=== PATIENT | female | born 1955 | race Caucasian/White ===

== ENCOUNTER → 2016-09-13 | Outpatient (CLI) | payer BC ==
[~2016-09-13] MED LIST: CHOL100010 PO; GLUC10007 PO; [UNRECOGNIZED DRUG - REMARK] PO
--- NOTE | 2016-09-13 12:47 | MAMMOGRAPHY REPORT ---
UNILATERAL LEFT DIGITAL DIAGNOSTIC MAMMOGRAM TOMOSYNTHESIS WITH CAD AND TARGETED LEFT ULTRASOUND: CLINICAL HISTORY: 61-year-old female presents for follow-up in the left breast. She is 6 months sta tus post ultrasound-guided core biopsy of a focal area of architectural distortion in the 3:00 left breast that yielded benign adenosis. This was felt to be discordant with the imaging appearance of distortion and surgical consultation for surgical excision was recommended. The patient consulted w dory Sneed, general surgery, since the previous exam. TECHNIQUE: Left CC and MLO 2-D digital and tomosynthesis images were obtained. Current study was al so evaluated with a Computer Aided Detection (CAD) system. COMPARISON: Comparison is made to exams dated: 03/16/2016 ultrasound biopsy, 03/03/2016 mammogram, 02/26 mammogram, 02/11/2014 mammogram, 12/10/2012 mammogram, and 12/07/2011 mammogram - [facility]. BREAST COMPOSITION: There are scattered areas of fibroglandular density in the left breast. FINDINGS: There is a ribbon shaped metallic biopsy marker along the posterior aspect of a focal are a of architectural distortion in the 3:00 middle one third of the left breast. This architectural d istortion does not appear larger comparing to multiple prior mammograms dating back to at least 11/24 on the standard 2-D views. No new central nodular component is seen on the tomosynthesis isidro ges. No other suspicious mass, architectural distortion or cluster of microcalcifications is seen th roughout the left breast. Targeted ultrasound was performed in the 3:00 left breast to re-evaluate the biopsied distortion. I t appears similar measuring approximately 5 x 6 x 5 mm. No new central masslike or nodular componen t is appreciated. IMPRESSION: ACR BI-RADS CATEGORY 4: SUSPICIOUS, TARGETED ULTRASOUND ACR BI-RADS CATEGORY 4: SUSPICI OUS The focal architectural distortion in the 3:00 left breast has not significantly changed compared to the prior exam and also appears stable on the 2-D mammographic views dating back to 2011. With iker roximately 5 years of stability this is most likely benign. However, pathology results did not conf irm the suspected radial scar and were considered discordant. The patient consulted with Dr. Sneed, general surgery, and they opted to follow this lesion as opposed to surgical excisional biopsy at is time. Overall, I still recommend surgical excision but if the patient wishes close follow-up that seems re asonable given the length of mammographic stability and we will continue to follow closely. The pat ient is due for annual bilateral mammography in 6 months and she scheduled that follow-up appointmen t prior to leaving the department. Approximately 10% of breast cancers are not detected with mammography. A negative mammographic repor t should not delay biopsy if a clinically suggestive mass is present. Ami Jacobo M.D. ay/:09/13/2016 10:12:12 Graphite Pan Drier Tender: Katie Stern RT(R)(M), [facility] letter sent: Abnormal 4/5 BI-RADS Code: ACR BI-RADS Category 4: Suspicious Ultrasound BI-RADS: ACR BI-RADS Category 4: Suspic ious
== END | disposition home or self-care (01) ==
LOC: C.MAMM 08:41
PROVIDERS: ATTEND Surgery
DX: R92.8 Other abnormal and inconclusive findings on diagnostic imaging of breast (principal)

== ENCOUNTER → 2017-03-16 | Outpatient (CLI) | payer BC ==
--- NOTE | 2017-03-16 12:36 | MAMMOGRAPHY REPORT ---
BILATERAL DIGITAL DIAGNOSTIC MAMMOGRAM TOMOSYNTHESIS WITH CAD AND TARGETED BILATERAL ULTRASOUND: 03/16 CLINICAL HISTORY: The patient presents for short interval follow-up in the left breast. She is statu s post ultrasound guided core needle biopsy of a focal area of architectural distortion in the left 3 :00 breast February 2016 yielded benign adenosis. The biopsy was felt to be discordant and surgical excision was recommended. The patient consulted with a surgeon, and together they decided to follow the lesion as opposed to excise it. The patient reports no current complaints. TECHNIQUE: Breast tomosynthesis in addition to standard 2D mammography was performed. Current study was also evaluated with a Computer Aided Detection (CAD) system. Bilateral CC and MLO 2-D and tomosy nthesis images were obtained. COMPARISON: Comparison is made to exams dated: 09/13/2016 ultrasound, 09/13/2016 mammogram, 03/16/2016 mammogram, 03/16/2016 ultrasound biopsy, 03/08/2016 ultrasound, and 03/03/2016 mammogram - [facility]. BREAST COMPOSITION: There are scattered areas of fibroglandular density in both breasts. FINDINGS: A biopsy marker clip is again noted within a focal area of architectural distortion in the left 3:00 breast. The architecture distortion does not appear significantly changed dating back to the 2011 exam mammographically. No calcifications or other suspicious finding is seen in association with the distortion. There is a newly visualized round circumscribed 8 mm mass in the right superio r posterior breast seen on the MLO view only. The remainder of both breasts are stable compared to p rior exams, without suspicious masses, calcifications, or areas of architectural distortion noted. Targeted ultrasound was performed of the area of architectural distortion seen within the left breast . In the left breast at 3:00, 4 cm from the nipple, again noted is a focal area of architectural dis tortion which does not appear significantly changed dating back to the February 2016 ultrasound, cur rently measuring 4 x 4 x 5 mm. Targeted ultrasound was performed of the area of the newly visualized mammographic mass. In the right breast at 9:00, 12 cm from the nipple, there is an oval circumscrib ed mass which measures 7 x 5 x 8 mm. A small echogenic fatty hilum is seen and there is internal vas cularity, and has the appearance of an intramammary lymph node. However, the peripheral hypoechoic c ortex appears thickened, therefore, the lymph node is morphologically abnormal. This corresponds wit h the newly visualized mammographic mass. The patient denies any known chronic inflammatory conditio ns or recent infections that could account for the enlarged lymph node. Therefore, the lymph node is indeterminate and ultrasound-guided core needle biopsy is recommended for further evaluation. IMPRESSION: ACR BI-RADS CATEGORY 4: SUSPICIOUS, TARGETED ULTRASOUND ACR BI-RADS CATEGORY 4: SUSPICIO US 1. Focal architectural distortion in the left 3:00 breast is not significantly changed mammographica lly dating back to the 2011 exam. This likely represents a radial scar given the long-term stability , however, pathology results from biopsy did not confirm a radial scar and findings were considered d iscordant. As it is recommended to excise radial scars given that malignant/atypical cells can somet imes be seen in association with a radial scars, surgical excision is still recommended. 2. Newly visualized 8 mm intramammary lymph node in the right breast at 9:00, which demonstrates abn ormal cortical thickening. The lymph node is indeterminate and ultrasound guided core needle biopsy is recommended for further evaluation. A phone call was made to the physician's office to confirm faxed results were received. The patient has been verbally notified of the results. She tentatively scheduled the biopsy before leaving the [facility]. Approximately 10% of breast cancers are not detected with mammography. A negative mammographic report should not delay biopsy if a clinically suggestive mass is present. Eloisa Rizzo M.D. ah/:03/16/2017 08:45:37 Event Planner: Yvette PRITCHARD)(Yelena), [facility] letter sent: Abnormal 4/5 BI-RADS Code: ACR BI-RADS Category 4: Suspicious Ultrasound BI-RADS: ACR BI-RADS Category 4: Suspici ous
== END | disposition home or self-care (01) ==
LOC: C.MAMM 07:59
PROVIDERS: ATTEND Family Medicine
DX: R92.2 Inconclusive mammogram (principal); I89.8 Other specified noninfective disorders of lymphatic vessels and lymph nodes

== ENCOUNTER → 2017-03-22 | Outpatient (CLI) | payer BC ==
--- NOTE | 2017-03-22 09:22 | Discharge Instructions ---
Discharge Instructions Procedure Procedure Date: Mar 22, 2017. Reason for visit: Right Lymph Node. Discharge Discharge Date: Mar 22, 2017. Discharge Diagnosis: status post breast biopsy Instructions Activity Recommendations: Additional Limitations (see below) Return to School/Work: no limitations Recommended Home Diet: No Limitations Provider Instructions: ACTIVITY RECOMMENDATIONS: * No lifting, pushing, pulling or exercising the affected side for three days. RETURN TO SCHOOL/WORK: * You may return to work/school after the procedure, but do not perform any strenuous activities for 24 to 48 hours. MEDICATIONS: * Tylenol (two 325 mg) every four to six hours if needed for mild pain (if not allergic to Tylenol). DIET: * Resume previous diet. SPECIAL CARE INSTRUCTIONS: * Keep biopsy site dry for 24 hours. May shower after 24 hours, but do not soak (bathe) incision. * May remove Tegaderm (plastic patch) tomorrow AFTER showering. * Leave the steri-strips on for one week. Allow the steri-strips to fall off by themselves. If not off after one week, you may remove them. You may place a Bandaid crosswise over the strips, if desired. * Apply ice 10 minutes on and 10 minutes off as needed. * Wear a bra at bedtime to sleep more comfortably for 2-3 days. * Your referring physician should have the results after approximately 5 to 7 business days. * Call for unusual bleeding, fever, drainage, etc or if you have any questions call during normal business hours or after hours call Dr Rizzo, . FOLLOW UP VISIT: Follow-up with Referring Physician as scheduled. Allergies Coded Allergies: No Known Allergies (Verified , 08/07/14) Serge Rothman Recommendations: Call your doctor if: * Temperature above 101 degrees * Pain not relieved by pain medicine ordered * There is increased drainage or redness from any incision * You have any unanswered questions or concerns. Your Doctors Instructions noted above were prepared by provider Eloisa Rizzo. Patient Signature Section: Patient Instructions Signature Page Cristal Villa Patient (or Guardian) Signature/Date: I have read and understand the instructions given to me by my caregivers. Caregiver/RN/Doctor Signature/Date: The above-named patient and/or guardian has received patient instructions on this date. + Original Patient Signature Page (only) stays with chart. Please make copy for patient.
--- NOTE | 2017-03-22 15:28 | MAMMOGRAPHY REPORT ---
ULTRASOUND GUIDED BIOPSY RIGHT BREAST: 03/22/2017 CLINICAL HISTORY: Intramammary lymph node in the right 9:00 breast. PATIENT CONSENT: The procedure, risks and benefits were discussed with the patient and informed writt en consent was obtained. A timeout was performed immediately prior to the procedure. PROCEDURE DESCRIPTION: With ultrasound guidance, aseptic technique, and lidocaine as the local anesth etic (1% lidocaine to anesthetize the skin and 1% lidocaine with epinephrine to anesthetize the deepe r tissues), the mass of concern in the right 9:00 breast was sampled 3 times with a 14-gauge Achieve biopsy needle. Immediately thereafter, with ultrasound guidance, aseptic technique, and lidocaine a s the local anesthetic, a metallic localizer clip was placed centrally in the mass. Direct pressure was applied to the site immediately post procedure and hemostasis was achieved. Postprocedure unilat eral mammograms were performed to confirm placement of the clip in the expected location of the breas t mass. The patient tolerated the procedure without complication. She was given wound care instruc tions. The specimens were sent to pathology for analysis. COMPARISON: Comparison is made to exams dated: 03/16/2017 ultrasound, 03/16/2017 mammogram, 09/13/2016 ultrasound, 09/13/2016 mammogram, 03/16/2016 mammogram, and 03/03/2016 mammogram - [facility]. IMPRESSION: ULTRASOUND GUIDED BIOPSY Ultrasound guided core needle biopsy of the intramammary lymph node in the right 9:00 breast, with cl ip placement. The patient will receive pathology results from her referring provider. Eloisa Rizzo M.D. /:03/22/2017 09:23:06 Director Of Nursing: Yvette RED(Gisselle)(Yelena), [facility]
--- NOTE | 2017-03-22 15:30 | MAMMOGRAPHY REPORT ---
UNILATERAL RIGHT DIGITAL DIAGNOSTIC MAMMOGRAM TOMOSYNTHESIS: 03/22/2017 CLINICAL HISTORY: Status post right breast biopsy. TECHNIQUE: Breast tomosynthesis in addition to standard 2D mammography was performed. Postprocedura l right XCCL and MLO tomosynthesis images including C views were obtained. COMPARISON: Comparison is made to exams dated: 03/16/2017 ultrasound, 03/16/2017 mammogram, 09/13/2016 ultrasound, 09/13/2016 mammogram, 03/16/2016 mammogram, and 03/16/2016 ultrasound biopsy - [facility]. BREAST COMPOSITION: There are scattered areas of fibroglandular density in the right breast. FINDINGS: A new biopsy marker clip is seen within the biopsied right 9:00 breast mass; the mass and biopsy marker clip are only visualized on the MLO view and cannot be seen on the XCCL view. No signi ficant postbiopsy hematoma is seen. IMPRESSION: POST PROCEDURE IMAGING FOR MARKER PLACEMENT New biopsy marker clip status post ultrasound guided biopsy of the right 9:00 breast mass. Pathology results are pending. Approximately 10% of breast cancers are not detected with mammography. A negative mammographic report should not delay biopsy if a clinically suggestive mass is present. Eloisa Rizzo M.D. /:03/22/2017 09:28:21 Medical Engineer: Yvette PRITCHARD)(Yelena), [facility] BI-RADS Code: Post Procedure Imaging For Marker Placement
== END | disposition home or self-care (01) ==
LOC: C.MAMM 08:46
PROVIDERS: ATTEND Family Medicine
DX: R59.0 Localized enlarged lymph nodes (principal)

== ENCOUNTER → 2018-01-31 | Outpatient (CLI) | payer BC, OTHER | END | disposition home or self-care (01) | LOC: C.RDSM 14:00 | PROVIDERS: ATTEND Physical Medicine & Rehabilitation Sports Medicine | DX: M25.552 Pain in left hip (principal) ==

== ENCOUNTER 2020-05-05 06:03 | Observation (INO) ==
--- NOTE | 2020-04-09 13:45 | Anesthesiology Consultation ---
Date of Service April 09, 2020 Assessment & Plan (1) Encounter for pre-operative examination: Per assessment on 04/09: Travel screen- Lives in [facility]. No travel since late January. DOS 05/05. Uses PPE. No known COVID-19 positive contacts or current COVID-19 related symptoms. Surgeon arranging preop COVID testing. Awaiting results. Chart Review Chart Review: Acceptable Risk for Surgery (pending surgeon-ordered PCP clearance) and Patient seen in Pre Admission Testing Teaching & Discussion Pre-Anesthesia Teaching/Discussion Notes: Instructed NPO after midnight before s urgery,except medications with 15 cc of water. Medication instructions provided according to the PAT guidelines. History Surgery Operation Date: 05/05/20 07:00 Proposed Procedures p Right Total Knee Arthroplasty - Jordi Irene MD Height/Weight Height: 5 ft 7 in Weight: 77.7 kg Allergies Allergy/AdvReac Type Severity Reaction Status Date / Time No Known Allergies Allergy Unknown Verified 04/03/20 12:57 Medications Home Medications Medication Instructions Recorded Confirmed Last Taken ibuprofen 1 tab PO DAILY PRN 04/09/20 04/09/20 Unknown Past Medical History Medical History Osteoarthritis Exercise / Class Metabolic Activity II 4-5 Yardwork/Stairs/Walk up hill Past Surgical History Surgical History History of hand surgery left hand middle finger repair Hx of arthroscopy of right knee Hx of hysterectomy vaginal Past Anesthesia History No Hx of Anesthesia Complications (except PONV x 1 episode) and No Family Hx of Anesthesia Complications History of PONV No Hx of Motion Sickness and History of PONV Social History Smoking Status: Never smoker Do You Dip or Chew Tobacco: No Hx Alcohol Use: Yes Alcohol type: wine alcohol intake frequency: holidays/special occasions only Hx Substance Use: No substance use type: does not use Review of Systems Patient denies chest pain, shortness of breath, dyspnea on exertion, fever, ch ills, cough, wheezing, palpitations. Physical Exam Vital Signs VITALS BP 104/56 P 77 TEMP 98.0 SP02 99%RA RESP 16 PHYSICAL Full neck and c-spine range of motion. Full TMJ range of motion. TMD 3 finger breaths Mallampati Score 1 Dentition: molar missing, + several crowns, plan for crown replacement prior to surgery (patient states she made surgeon aware) Lungs: clear throughout to auscultation Cardiac: regular rate and rhythm, no murmurs noted Spine: normal Carotid arteries: negative bruit Extremities: no edema Testing Laboratory Results 04/09/20 14:23 04/09/20 14: PT 11.2 Seconds (9.0-12.0) 04/09/20 14: INR 1.1 (0.9-1.1) 04/09/20: APTT 27.5 Seconds (21.0-31.0) 04/09/20 14: Blood Type O Positive 04/09/20: Antibody Screen NEGATIVE 04/09/20: Electrocardiogram Date: 04/09/20 Findings: + NSR @ (69) Chest X-Ray Date: 04/09/20 FINDINGS: PA and lateral chest radiographs are obtained. No prior studies are available for comparison at the time of dictation. The cardiomediastinal silhouette is unremarkable. The lungs appear hyperinflated and hyperlucent with flattening of diaphragms and increased retrosternal clear space. This suggests emphysema. No airspace consolidation or pleural effusion is identified There is no pneumothorax. The skeletal structures are osteopenic. The bony thorax appears intact. IMPRESSION: No active disease in the chest. Suspect emphysema.
--- NOTE | 2020-04-09 15:20 | XRay Report ---
TWO VIEW CHEST CLINICAL HISTORY: Preoperative examination. FINDINGS: PA and lateral chest radiographs are obtained. No prior studies are available for compariso n at the time of dictation. The cardiomediastinal silhouette is unremarkable. The lungs appear hyper inflated and hyperlucent with flattening of diaphragms and increased retrosternal clear space. This s uggests emphysema. No airspace consolidation or pleural effusion is identified There is no pneumothor ax. The skeletal structures are osteopenic. The bony thorax appears intact. IMPRESSION: 1. No active disease in the chest. 2. Suspect emphysema. ACT 112: Negative or not required by law. Electronically signed by: Raoul Quintanilla M.D. 04/09/2020 3:19 PM
[2020-04-09 15:26] LABS: Basophils # (auto) 0.02 K/uL (0-0.2); Basophils % (auto) 0.3 %; Eosinophils # (auto) 0.17 K/uL (0-0.5); Hematocrit (blood only) 38.8 % (37-47); Hemoglobin 12.3 g/dL (12.0-16.0); Lymphocytes # (auto) 1.54 K/uL (1.2-3.4); Lymphocytes % (auto) 26.8 %; Mean Corpuscular Hemoglobin 28.1 pg (25-34); Mean Corpuscular Hgb Conc 31.7 g/dL (32-36); Mean Corpuscular Volume 88.6 fL (80-100); Monocytes # (auto) 0.37 K/uL (0.11-0.59); Monocytes % (auto) 6.4 %; Neutrophils # (auto) 3.65 K/uL (1.4-6.5); Neutrophils % (auto) 63.5 %; Platelet Count 249 K/uL (130-400); RDW Coefficient of Variation 14.5 % (11.5-14.5); RDW Standard Deviation 47.3 fL (36.4-46.3); Red Blood Count 4.38 M/uL (4.2-5.4); White Blood Count 5.75 K/uL (4.8-10.8)
[2020-04-09 15:40] LABS: INR 1.1 (0.9-1.1); Partial Thromboplastin Time 27.5 Seconds (21.0-31.0); Prothrombin Time 11.2 Seconds (9.0-12.0)
[2020-04-09 16:05] LABS: BUN Creatinine Ratio 25.9 (10-20); Calcium 10.4 mg/dl (8.5-10.1); Creatinine Clr Calc Pharmacy 77.3 ml/min; Est GFR (African American) 91.7; Est GFR (Non-African American) 79.1; Potassium 3.9 mmol/L (3.5-5.1)
--- NOTE | 2020-04-10 06:10 | Electrocardiogram Report ---
Test Reason : Blood Pressure : / mmHG Vent. Rate : 069 BPM Atrial Rate : 069 BPM P-R Int : 182 ms QRS Dur : 088 ms QT Int : 382 ms P-R-T Axes : 078 069 067 degrees QTc Int : 409 ms Normal sinus rhythm Normal ECG When compared with ECG of 23-AUG-2011 11:31, No significant change was found Confirmed by Reddy Jose ([id number]) on 04/10/2020 6:09:54 AM Referred By: Jordi Irene Confirmed By:Reddy Jose
[~2020-05-05 06:03] MED LIST changes: +ACETAMINOPHEN 500 MG TAB PO SCH; -CHOL100010 PO; +CeleBREX 200 MG CAP PO SCH; +FAMOTIDINE 20 MG TAB PO SCH; +GABAPENTIN 600 MG DOSE PO SCH; -GLUC10007 PO; +LR 500ML BOLUS, THEN 15ML/HR IV SCH; +LR 60ML/HR IV SCH; +METOCLOPRAMIDE HCL 10 MG TABLET PO SCH; +ROPIVACAINE 0.5% HCL/PF 150 MG, BUPIVACAINE 0.5% MPF 30 ML, EPINEPHrine 0.15 MG, Ketoro... INFIL SCH; +TRANEXAMIC ACID 1,000 MG **IV Intra-op IV SCH; +TRANEXAMIC ACID 1,000 MG **IV Pre-op IV SCH; -[UNRECOGNIZED DRUG - REMARK] PO; +ceFAZolin 2000MG 2,000 MG/15 ML SYR IV SCH; +cloNIDine HCL 0.1 MG/24 HR TRANSDERM SYS TD SCH; +dexAMETHasone 4 MG TAB PO SCH; +oxyCODONE HCL 10 MG TABCR (OxyCONTIN) PO SCH; +traMADol HCL 50 MG TABLET PO SCH
[2020-05-05] MEDS ORDERED: BUPIVACAINE/EPINEPHRINE 0.25% 1:200,000 30 ML VIAL ONE (06:23)
[2020-05-05] MEDS ORDERED: DEXAMETHASONE SOD INJ 4 MG/ML VIAL ONE (06:23)
[2020-05-05] MEDS ORDERED: BUPIVACAINE 0.5 % 5 MG/1 ML PF 10ML VIAL ONE (06:23)
[2020-05-05] MEDS ORDERED: ALBUTEROL HFA INHALER 8.5 GM ONE (06:47)
[2020-05-05] MEDS ORDERED: MIDAZOLAM HCL 1 MG/ML 2ML VIAL ONE (06:47)
[2020-05-05] MEDS ORDERED: LIDOCAINE HCL 2% 2 ML VIAL/AMP(20MG/ML) INFIL ONE (06:47)
[2020-05-05] MEDS ORDERED: fentaNYL citrate 100 MCG/2 ML VIAL ONE (06:47)
--- NOTE | 2020-05-05 06:52 | History & Physical Bridge Note ---
Date of Service May 05, 2020 History & Physical Bridge Note I have examined the patient, reviewed the History & Physical and in the interval since the performance of the History & Physical I have noted the following changes of clinical significance: no changes noted
[2020-05-05] MEDS ORDERED: ORTHO JOINT ANESTHETIC ONE (07:51)
[2020-05-05] MEDS ORDERED: BACITRACIN INJ 50,000 UNIT VIAL ONE (07:51)
[2020-05-05] MEDS ORDERED: PROPOFOL IV EMULSION 10 MG/ML 20 ML VIAL IV ONE (08:29)
--- NOTE | 2020-05-05 11:00 | Operative Report ---
Post Operative Report Pre & Post Diagnosis Operation Date: 05/05/20 08:10 Pre-Op Diagnosis: Right Knee Osteoarthritis Post-Op Diagnosis: Right Knee Osteoarthritis I identified the patient and participated in the time-out.: Yes Procedure Operation Date: 05/05/20 08:10 Actual Procedures p Right Total Knee Arthroplasty(Right) - Jordi Irene MD Surgeon Jordi Irene MD Ob Gyn Romero Spicer, orthopedic fellow. Lyndsey Schmitz physicians occupational therapist's assistant. Estimated Blood Loss 10 Findings Consistent with Post-Op Diagnosis Microscopically decreased bone density. Significant synovitis with hypert rophied synovium. Specimens Bone and soft tissue. Drains None Anesthesia Type MAC Spinal Regional Complications none Disposition Accompanied Patient To Recovery: No Disposition: Recovery Room Indications Cristal is 64. She has right knee pain refractory to nonsurgical methods of management. Her knee pain is secondary to arthritis. After review of the options risks and benefits she has elected to proceed with knee replacement surgery. Description of Procedure Informed consent obtained. Patient identified. She identified the operative site as the right knee. I marked with my initials. A preoperative surgical timeout was performed. A preop dose of IV antibiotics was given. She was taken to the operating room positioned supine on the operating room table and the anesthetic was administered. A tourniquet was applied to the right thigh. The right leg was examined and then prepped and draped in the usual sterile fashion. DVT prophylaxis with mechanical devices and postoperatively with mechanical devices early mobility and Lovenox. Bony prominences were inspected and padded. A padded post was placed behind the calf for knee flexion positioning. The examination demonstrated mild valgus alignment with a large effusion. Knee motion was 0 to approximately 105 degrees and she had trace LCL laxity and 1+ MCL laxity in mid position. The knee was stable in full extension. Preop dose of TXA given. Limb exsanguinated with Esmarch. Tourniquet inflated 250 mmHg. A midline longitudinal incision was made about 20 cm in length. This was followed by medial parapatellar arthrotomy. Immediately upon entering the knee a large volume of synovial fluid was evacuated. The patella was everted. There was thickening of the synovium. Not so much red friable synovitis but just enlarged thickening which was debrided throughout the knee as encountered medial lateral gutters and suprapatellar pouch in particular. The synovial reflection in the lateral gutter was released. The retropatellar fat pad was resected. A conservative medial release was performed and the knee was flexed. The cruciate ligaments were intact and sacrificed. The distal articular cartilage was fairly normal but in both the medial lateral compartment on the distal femur there were 2 cm areas of grade 4 chondrosis in the flexion weightbearing area. The lateral meniscus was deficient. The medial meniscus was intact and debrided. There was grade 4 chondrosis in the central portion of the lateral tibial plateau with central where. There was essentially no normal cartilage in the lateral tibial plateau. Medial tibial plateau normal. After sacrificing the cruciates the kne e was able to be subluxated. The intramedullary alignment bj was inserted just in front of the intercondylar eminences and between them. The 0 degree tibial cutting block was fixed to the tibia after orienting it with the tibial tubercle. The guide was set for a conservative 6 mm cut off of the medial side corresponding to a 4 mm cut laterally. Using the extra medullary alignment bj we determined that this cut was in slight valgus. I therefore used a 2 degree cutting block. I rechecked all my parameters and found them to be acceptable including the alignment. It bisected the ankle joint malleolar axis and intersecting the second ray. [place] was parallel to the tibia. This cut was made protecting the patellar tendon and the tibia was sized to a 3. Attention was turned to the femur where a pilot supervisor hole was drilled just in front of the PCL. Intramedullary alignment bj was inserted. Guide was set at 5 degrees right knee valgus 12 mm thick cut. This was distal to the collateral ligaments.. This cut was made. The epicondylar axis was marked out. The distal femoral sizing block was applied and sized to a 3. The external rotation drill holes were made which roughly parallel the epicondylar axis. Not in internal rotation. The extension gap was a 10 trace bit loose medially. 1 or 2 mm. The distal femoral size 3 cutting block was applied. Anterior down. These cuts were made protecting the collateral ligaments. The flexion gap was a symmetric 10. The box cutting guide was applied lateralized neck cut was made and the size 3 femoral component was applied. On the medial portion of the femur it was noted that there was large spaces be tween the trabeculae of the bone. To some extent this was due to stress shielding but also suggested the presence of osteoporosis as the general bone had that appearance. Care was taken at all times. The tibia was subluxated. The tray was aligned laterally pinned in place and the keel was drilled and punched. Trialing with a 10 mm thick polyethylene insert revealed full extension and flexion easily to 90 degrees. The knee showed trace laxity in full extension and 1+ MCL laxity in mid position. The knee showed no significant varus valgus laxity at 90 degrees. The patella was everted and measured to be 20 mm in thickness. The guide was set to preserve 14 mm of bone. This cut was made and residual patellar thi ckness was 13. The 32 patella was selected. It was medialized and distal lysed. Appropriately aligned and the lug holes were drilled. Patellar tracking showed some lift off towards 90 degrees of flexion which at the end of the case was corrected by a very minimal lateral release of the more superior patella femoral ligaments. The vessels were not encountered. The components removed from the knee. The canals were plugged. Ortho joint mix injected into the back of the knee. 2 bags of Simplex P cement were mixed and while in a doughy state the femur and tibia were cemented into place. The knee was then held in full extension with a trial spacer and the patella was cemented in place and held with a clamp. The remainder the Ortho joint mix was injected and the knee was irrigated. After the cement had hardened the tourniquet was let down after 95 minutes of inflation. Meticulous hemostasis was performed with very minimal bleeding. The next dose of TXA was then given. Trialing showed that the knee was stable in full extension and 90 and had 1+ MCL laxity at mid position. I accepted this and went ahead and inserted the final spacer. The back of the knee was inspected for spit cement removed as necessary and copious irrigation was performed. The patellar tracking was addressed as previously mentioned. The knee was again irrigated. The extensor mechanism was closed above the equator the patella with interrupted #2 FiberWire. Below the equator with running and interrupted #1 Vicryl. The skin was closed in layers with 0 and 2-0 Vicryl followed by maria e. The leg was cleaned with wet and dry sponges and soft sterile dressing was applied Xeroform 4 x 4's ABD full-length Yash wrap with knee immobilizer. Patient awakened from anesthesia and taken to recovery room in stable condition. There were no complications. The resected bone and synovium was sent for specimen. Counts were correct and blood loss is estimated to be 10 cc. At the conclusion the operation I left a message for the patient's . Plan is to admit her to the hospital and rehab according to the total knee protocol. Begin Lovenox at 12 hours postoperatively for DVT prophylaxis. Components inserted with a J[employer]J PFC Sigma rotating platform knee. A 32 mm 3 peg oval dome patella size 3 right PS femur and a size 3 mobile-bearing keeled tibial tray with a size 310 mm thick posterior stabilized rotating platform polyethylene insert. I attest to the content of the Intraoperative Record and any orders documented therein. Any exceptions are noted below.
--- NOTE | 2020-05-05 11:03 | Operative Report ---
Post Operative Report Pre & Post Diagnosis Operation Date: 05/05/20 08:10 Pre-Op Diagnosis: Right Knee Osteoarthritis Post-Op Diagnosis: Right Knee Osteoarthritis I identified the patient and participated in the time-out.: Yes Procedure Operation Date: 05/05/20 08:10 Actual Procedures p Right Total Knee Arthroplasty(Right) - Jordi Irene MD Surgeon Jordi Irene M.D. Meat Slicer Romero Spicer, orthopedic fellow. Lyndsey Schmitz PA-C Estimated Blood Loss 10 Findings Consistent with Post-Op Diagnosis Specimens Bone and soft tissue Anesthesia Type Spinal MAC Complications none Description of Procedure Patient was taken to the operating room, placed under spinal anesthesia, given IV Sedation and peripheral nerve block. Time out performed, prepped and draped in routine sterile fashion. I was present during the entire case, please see Dr. Irene's operative report for further detail. patient was awakened and taken to the recovery room in stable condition. I attest to the content of the Intraoperative Record and any orders documented t herein. Any exceptions are noted below.
--- NOTE | 2020-05-05 11:08 | Operative Report ---
Post Operative Report Pre & Post Diagnosis Operation Date: 05/05/20 08:10 Pre-Op Diagnosis: Right Knee Osteoarthritis Post-Op Diagnosis: Right Knee Osteoarthritis I identified the patient and participated in the time-out.: Yes Procedure Operation Date: 05/05/20 08:10 Actual Procedures p Right Total Knee Arthroplasty(Right) - Jordi Irene MD Surgeon Jordi Irene MD Regulatory Submissions Specialist Romero Spicer, orthopedic fellow. Lyndsey Schmitz PA-C Estimated Blood Loss 10 Findings Consistent with Post-Op Diagnosis Specimens bone cuts and synovial tissue Anesthesia Type Spinal Complications none Disposition Accompanied Patient To Recovery: Yes Disposition: Recovery Room Description of Procedure as per migue Irene's note, I assisted in prepping and draping, instruments handling certain parts of the procedure and wound closure I attest to the content of the Intraoperative Record and any orders documented therein. Any exceptions are noted below.
--- NOTE | 2020-05-05 11:22 | XRay Report ---
XR knee RT 1 or 2V routine CLINICAL HISTORY: Postoperative evaluation. COMPARISON: Right knee radiographs March 03, 2020. FINDINGS: Alignment of the total right knee arthroplasty is anatomic. There is no periprosthetic fra cture or unexpected radiopaque foreign body. There are skin maria e. IMPRESSION: Expected findings following total right knee arthroplasty. ACT 112: Negative or not required by law. Electronically signed by: Dustin Blakely M.D. 05/05/2020 11:21 AM
--- NOTE | 2020-05-05 11:57 | Anesthesiology Progress Note ---
Date of Service May 05, 2020 Anesthesia Post Procedure Vital Signs Vital Signs: Temp Pulse Pulse Resp BP BP Pulse Ox 05/05/20 11:30 80 15 113/69 94 05/05/20 11:20 36.4 C L 80 16 124/82 96 05/05/20 11:10 78 15 129/80 95 05/05/20 11:02 36.4 C L 87 16 141/88 H 96 05/05/20 07:30 36.8 C 75 20 136/91 96 05/05/20 07:00 36.9 C 82 16 134/80 96 Transfer of Care Handoff Completed per policy Notes Mental Status: alert / awake / arousable Patient Amnestic to Procedure: Yes Nausea / Vomiting: adequately controlled Pain: adequately controlled Airway Patency, RR, SpO2: stable & adequate BP & HR: stable & adequate Hydration State: stable & adequate Anesthetic Complications: no major complications apparent
[2020-05-05] MEDS ORDERED: oxyCODONE HCL IR 5 MG TAB (IMMEDIATE RELEASE) PO PRN (12:00)
[2020-05-05] MEDS ORDERED: diphenhydrAMINE 50 MG/ML VIAL IV PRN (12:00)
[2020-05-05] MEDS ORDERED: ONDANSETRON INJ 2 MG/ML 2 ML VIAL IV PRN (12:00)
[2020-05-05] MEDS ORDERED: METOCLOPRAMIDE HCL INJ 5 MG/ML 2 ML VIAL IV PRN (12:00)
[2020-05-05] MEDS ORDERED: traMADol HCL 50 MG TABLET PO PRN (12:00)
[2020-05-05] MEDS ORDERED: MAGNESIUM HYDROXIDE SUSP 30 ML UDC PO PRN (12:00)
[2020-05-05] MEDS ORDERED: HYDROmorphone INJ 0.5 MG/0.5 ML SYR IV PRN (12:00)
[2020-05-05] MEDS ORDERED: NALOXONE HCL 0.4 MG/1 ML VIAL/CARP IV PRN (12:00)
[2020-05-05] MEDS ORDERED: bisacodyL 10 MG SUPP PR PRN (12:00)
[2020-05-05] MEDS: CHECK CLONIDINE PATCH PLACEMENT SCH ×4 (12:19→23:48)
[2020-05-05] MEDS: KETOROLAC 30 MG/ML VIAL IV SCH ×3 (13:37→23:48)
[2020-05-05] MEDS ORDERED: hydrALAZINE HCL 20 MG/ML VIAL IV PRN (14:54)
[2020-05-05] MEDS: ACETAMINOPHEN 500 MG TAB PO SCH ×2 (16:02→21:49)
[2020-05-05] MEDS: SODIUM CHLORIDE 0.9% 1000ML 1,000 ML IV SCH (16:03)
[2020-05-05] MEDS: ceFAZolin 2000MG 2,000 MG/15 ML SYR IV SCH ×2 (16:19→23:47)
--- NOTE | 2020-05-05 17:07 | Progress Notes ---
DATE: 05/05/2020 She is resting comfortably in bed. Slightly nauseated. Pain otherwise well controlled. Dorsalis pedis 1+. Sensation normal. Gauze dressing clean and dry. Eversion, dorsiflexion, plantar flexion of the ankle and toes, normal strength. I reviewed with her, her x-ray. There is slight anterior slope on the lateral view. Otherwise, in good position without evidence of complication. We talked about her pain management regimen. Discussed surgical findings. We will reassess in the morning. DVT prophylaxis, mechanical devices and Lovenox.
[2020-05-05] MEDS ORDERED: SENNA 8.6 MG TAB PO SCH (21:00)
[2020-05-05] MEDS: DOCUSATE SODIUM 100 MG CAP PO SCH (21:49)
[2020-05-05] MEDS: ENOXAPARIN INJ 30 MG/0.3 ML SYR SQ SCH (23:47)
[2020-05-06] MEDS: SODIUM CHLORIDE 0.9% 1000ML 1,000 ML IV SCH (00:47)
[2020-05-06] MEDS: ACETAMINOPHEN 500 MG TAB PO SCH ×2 (05:54→13:10)
[2020-05-06] MEDS: KETOROLAC 30 MG/ML VIAL IV SCH (05:55)
[2020-05-06 06:44] LABS: Hematocrit (blood only) 31.1 % (37-47); Hemoglobin 9.8 g/dL (12.0-16.0); Mean Corpuscular Hemoglobin 27.7 pg (25-34); Mean Corpuscular Hgb Conc 31.5 g/dL (32-36); Mean Corpuscular Volume 87.9 fL (80-100); Mean Platelet Volume 11.1 fL (7.4-10.4); Platelet Count 209 K/uL (130-400); RDW Coefficient of Variation 14.8 % (11.5-14.5); RDW Standard Deviation 47.8 fL (36.4-46.3); Red Blood Count 3.54 M/uL (4.2-5.4); White Blood Count 8.83 K/uL (4.8-10.8)
[2020-05-06 06:49] LABS: BUN Creatinine Ratio 21.8 (10-20); Creatinine Clr Calc Pharmacy 86.4 ml/min; Est GFR (African American) 104.3; Potassium 4.3 mmol/L (3.5-5.1)
--- NOTE | 2020-05-06 07:36 | Discharge Summary ---
Date of Service May 06, 2020 Discharge Data Consultations 05/05/20 12:00 Consult Case Management - Discharge Planning Routine Procedures Performed Operation Date: 05/05/20 08:10 Actual Procedures p Right Total Knee Arthroplasty(Right) - Jordi Irene MD Hospital Course (1) Degenerative joint disease of knee, right: Patient was admitted to [facility] on May 05, 2020 after undergoing and elective right total knee arthroplasty. Her surgery was performed with spinal anesthesia, with IV sedation and peripheral nerve block. She was given IV Ancef prior to her surgery which was continued for 24 hours after her procedure. She tolerated the procedure well without any intra- operative complications. Postoperative x-rays were taken in the recovery room which showed a stable prosthesis in good position. She was given a regular diet post operatively and tolerated during her inpatient stay. She did develop some post operative nausea. She was given oxycodone, tramadol, tylenol, toradol, IV dilaudid for post operative pain control. She was started on Lovenox 30 mg BID on the evening of her procedure for DVT prophylaxis. She was also given Dawood stockings and SCD's during her inpatient stay. Her vitals remained stable during her inpatient stay. She was allowed out of bed, weight bear as tolerated right lower extremity with the assistance of a walker and knee immobilizer when out of bed for 48 hours after surgery. She was given a bowel regimen as needed and had normal urine output and bowel movements during her inpatient stay. On post operative day #1 CBC, BMP and Vitamin D were performed. She was found to have acute blood loss anemia, but remained asymptomatic. This was monitored during her stay and will be follow up on as an outpatient. She was also found to have Vitamin D deficiency and was placed on Vitamin D2 50,000 IU weekly as an outpatient. She was seen by physical therapy and occupational therapy and did well out of bed. She was seen by Case management for discharge needs and was set up for home health and home nursing. She was deemed safe for discharge and was discharged to her home in stable condition on May 06, 2020 with her . Discharge Instructions New Medicine: * You will likely be taking one or more of these medications: 1. Lovenox- You will be on Lovenox for 2-4 weeks after surgery to prevent blood clots. Do not take anti-inflammatory pills (Advil or Aleve) while on Lovenox. Aspirin, 81 mg is OK. 2. Oxycodone - Take, as directed, when you need it, every four to six hours to control your pain. 3. Tramadol - Take, as directed, when you need it, every four to six hours to control your pain. 4. Colace & Senokot - Take to prevent constipation which can be caused by narcotics. These can be bought [id number] at the pharmacy 5. Tylenol - 1-2 tabs every 8 hours as needed for pain. * The most common side effects of pain medicine are nausea and constipation. If nausea or constipation is too much of a problem or if you have any questions about your new medicines or doses, call [facility] at . We will try to help you manage these issues. "VERY IMPORTANT TO READ AND REVIEW" Blood Clots and Blood Thinning Medicine: * You are given Lovenox during the immediate post-operative period to lessen the risk of blood clots forming in your legs and/or lungs. Lovenox is usually given for 2-4 weeks after surgery. * The prescription is for 30 mg injections. * You need to get blood work on Monday05/11/20. Physical Therapy: * Do your physical therapy at home. These are the exercises you learned while in the hospital (quad sets, leg raises, calf pumps, gluteal squeezes, knee bending, and heel props.) You should do these exercises 3-4 times per day. * You will either go to inpatient rehab ([facility]), home with Home Therapy and nursing or home with outpatient rehab. You should do rehab with the therapist 2-3 times per week. You should do therapy on your own daily. * You may bear full weight on your leg with crutches or walker unless otherwise advised. Home Exercise: * You were shown a series of exercises (heel props, heel slides, etc.) in the hospital. Do these exercises three to four times each day including the exercises you were shown in physical therapy. Walking: * You may be up for short periods of time. Standing and walking for 1-2 hours at a time is usually okay. You should not stand or walk for excessive periods of time as this may Cause increased pain and swelling. SELF CARE INSTRUCTIONS AFTER TOTAL KNEE REPLACEMENT A. You may need to continue a physical therapy program after discharge from the hospital. There are several options available to you. Your doctor will assist you in selecting the best one for you. 1. An out-patient facility 2 to 3 times a week for therapy or home therapy. 2. Continue working on all exercises taught to you in the hospital. Your goals should be to increase bending of your knee to 90 degrees and beyond and to fully straighten your knee. B. Your therapist will notify you when you are able to progress from a walker to a cane. C. Wear TEDS as much as possible.~ They may be removed at night for laundering. D. Do not place a pillow behind your knee when resting. A pillow at your ankle is okay. E. Ice your knee 15-20 minutes every 2-3 hours and elevate it above the level of your heart. F. You may shower on the fourth day after surgery using regular soap and water. Do not submerge until the wound is completely healed (approximately 2 weeks). Until the fourth day after surgery, cover the incision/bandage with a bag or plastic wrap. G. Anyone who is touching your surgical incision area should wash their hands and wear gloves. H. Keep your incision covered with gauze pads under the DAWOOD hose until it is dry. VERY IMPORTANT TO READ AND REVIEW A. YOU WILL BE GIVEN AN ORDER AT DISCHARGE FOR CBC (BLOOD WORK). Script provided at discharge. PLEASE HAVE THIS DONE INSTRUCTED. PLEASE CALL OUR OFFICE AFTER YOUR BLOODWORK IS COMPLETE SO WE CAN TRACK YOUR RESULTS. IF YOU ARE GOING TO OUTPATIENT PHYSICAL THERAPY, YOU WILL NEED TO GO TO OUTPATIENT TESTING TO HAVE IT DRAWN. B. There are a few signs you need to watch for after you are home. Call [facility] if you notice any of the followin. Increased severe knee pain. Some pain is expected especially when you exercise. 2. Increased swelling in your leg or knee; pain or swelling of the calf muscle in either lower leg. 3. Any fluid drainage from the incision. 4. Shortness of breath or chest pain. 5. Numbness and tingling in the surgical extremity C. Please call [facility] at if you have any concerns or questions about your operation or recovery. The doctor or his nurse will return your call promptly. D. Do not have any elective dental work or other elective procedures done for 6 weeks after your knee replacement. When you have any invasive procedure (dental cleaning, extraction, colonoscopy etc) performed, you will need to take antibiotics to prevent infection from developing in your artificial joint. Tell your other health care providers you have an artificial joint. My office will supply you with further information and the antibiotics. Call your doctor if: * Temperature above 101 degrees F. * Pain not relieved by pain medicine ordered. * Increased drainage or redness from incision. * Notify your doctor with any questions or concerns. Follow-up Visit: You will follow-up with Dr. Irene 10-14 days after surgery. The office number is . Avoid all tobacco products. If you need help to stop smoking, call [place] at . This is a free call.
[2020-05-06] MEDS: CHECK CLONIDINE PATCH PLACEMENT SCH (07:38)
[2020-05-06] MEDS: DOCUSATE SODIUM 100 MG CAP PO SCH (07:38)
[2020-05-06] MEDS ORDERED: dexAMETHasone 4 MG TAB PO SCH (08:00)
[2020-05-06 08:42] LABS: Vitamin D, 25 Hydrox 16.6 ng/ml (30-100)
[2020-05-06] MEDS ORDERED: MULTIVITAMIN TAB PO SCH (09:00)
[2020-05-06] MEDS ORDERED: ERGOCALCIFEROL 50,000 UNITS 1250 MCG CAP PO ONE (09:15)
[2020-05-06 09:22] LABS: Act87 Hepatitis C IgG Screen Neg (Neg)
--- NOTE | 2020-05-06 09:57 | Progress Notes ---
DATE: 05/06/2020 She is resting comfortably in her bed. Eating breakfast. Her nausea was substantial but is now improved. Her pain is well controlled. She is afebrile with stable vital signs. Her urine output is adequate. White count normal, hemoglobin 10, hematocrit 31, platelets 209. PRP noted and generally within normal limits. Her vitamin D level is 16. Vitamin D replacement will be given. Dorsalis pedis pulse 1+. 5/5 ankle and toe plantarflexion, dorsiflexion strength and eversion. Dressing clean and dry. Able to do a controlled straight leg raise. IMPRESSION: 1. Right knee replacement. 2. Vitamin D deficiency. PLAN: Findings are discussed. We will replace vitamin D. X-rays reviewed. Continue PT and OT. If she functions well with therapy and her pain is well controlled, we will consider discharge. If she goes home, she will follow up in 2 weeks. She will continue her pain medicines, regular meds and Lovenox. We talked about appropriate activity levels and wound care. Elevate and ice. If there are any problems with swelling, numbness, tingling, drainage, or pain, please call the office. We will set up a bone density test as an outpatient. Her test done about 5 years ago was normal, but just outside the range of osteopenia.
[2020-05-06] MEDS: ENOXAPARIN INJ 30 MG/0.3 ML SYR SQ SCH (11:03)
[2020-05-06] MEDS ORDERED: CeleBREX 200 MG CAP PO SCH (21:00)
== END 2020-05-06 15:21 | disposition home health service (06) ==
LOC: 3E 06:03 → ASU 06:03

== ENCOUNTER 2022-01-06 06:50 | Observation (INO) ==
--- NOTE | 2021-12-20 15:34 | PAT Medication Instructions ---
Medication Instructions Date of Service December 20, 2021 Home Medications ascorbic acid 7.5 mg-vit E 7.5 unit-biotin 1,250 mcg chewable tablet (Hair,Skin,Nails with Biotin) 1 tab PO QAM calcium 600 mg capsule 600 mg PO QAM glucosamine-chondroitin 250 mg-200 mg tablet (Osteo Bi-Flex) 2 tab PO QAM ibuprofen 200 mg tablet 200 mg PO Q6H PRN ASK your surgeon for instructions ibuprofen 200 mg tablet 200 mg PO Q6H PRN STOP taking 2 weeks before surgery ascorbic acid 7.5 mg-vit E 7.5 unit-biotin 1,250 mcg chewable tablet (Hair,Skin,Nails with Biotin) 1 tab PO QAM glucosamine-chondroitin 250 mg-200 mg tablet (Osteo Bi-Flex) 2 tab PO QAM DO NOT take the morning of surgery calcium 600 mg capsule 600 mg PO QAM Other Notes NOTHING TO EAT OR DRINK AFTER MIDNIGHT. If you have any questions please call us at [phone] or [phone] or [phone] or [phone]
--- NOTE | 2021-12-22 09:18 | Anesthesiology Consultation ---
Date of Service December 22, 2021 Assessment & Plan (1) Encounter for pre-operative examination: Chart Review Chart Review: Acceptable Risk for Surgery (pending surgeon ordered PCP clearance and preop Covid testing results ) and Patient seen in Pre Admission Testing - Awaiting surgeon ordered PCP clearance - done 12/08/21 Per PAT appt on 12/22/21, patient traveled to the [facility]- traveled by private vehicle- stayed at private residences- no large groups- does not wear PPE. Returned 12/20/21. No known Covid positive exposures or Covid related symptoms. No known Covid infection in the past 90 days. Pt is vaccinated for Covid. Preop Covid testing scheduled 01/04/22 = will await results. Educated on importance of self quarantining, social distancing and wearing mask in public for the patient one week prior to surgery and after Covid testing done Teaching & Discussion Pre-Anesthesia Teaching/Discussion Notes: Instructed NPO after midnight before surgery,except medications with 15 cc of water. Medication instructions provided according to the PAT guidelines. History Surgery Operation Date: 01/06/22 09:10 Proposed Procedures p Right Total Hip Arthroplasty - Jordi Rogers MD Height/Weight Height: 5 ft 6.5 in Weight: 87.6 kg Allergies Allergy/AdvReac Type Severity Reaction Status Date / Time No Known Allergies Allergy Unknown Verified 12/20/21 13:21 Medications Home Medications Medication Instructions Recorded Confirmed Last Taken ascorbic acid 7.5 mg-vit E 7.5 1 tab PO QAM 12/20/21 12/20/21 Unknown unit-biotin 1,250 mcg chewable tablet (Hair,Skin,Nails with Biotin) calcium 600 mg capsule 600 mg PO QAM 12/20/21 12/20/21 Unknown glucosamine-chondroitin 250 mg-200 2 tab PO QAM 12/20/21 12/20/21 Unknown mg tablet (Osteo Bi-Flex) ibuprofen 200 mg tablet 200 mg PO Q6H PRN 12/20/21 12/20/21 Unknown Past Medical History Medical History (Updated 12/22/21 @ 13:11 by Katelyn Mcdaniel PA-C) History of COVID-19 06/2021- VERY MILD, COLD SYMPTOMS- NO HOSPITALIZATION, NO CURRENT ISSUES Nausea and vomiting after administration of anesthetic agent Osteoarthritis Snoring No witnessed apnea. No hx of sleep study Exercise / Class Metabolic Activity II 4-5 Yardwork/Stairs/Walk up hill (one flight of stairs - no chest pain or SOB ) Past Surgical History Surgical History History of hand surgery left hand middle finger repair Hx of arthroscopy of right knee Hx of hysterectomy vaginal S/P colonoscopy Status post right knee replacement 04/2020-[facility] Past Anesthesia History No Hx of Anesthesia Complications (with exception to PONV ) and No Family Hx of Anesthesia Complications History of PONV No Hx of Motion Sickness and History of PONV (minimal alleviation with pre treatment of IV anti nausea meds ) Social History Smoking Status: Never smoker Do You Dip or Chew Tobacco: No Hx Alcohol Use: Yes Alcohol type: wine alcohol intake frequency: holidays/special occasions only Hx Substance Use: Yes (LESS THAN ONCE PER MONTH) substance use type: marijuana Review of Systems Left ankle swelling x 1 week- only to left ankle area- no erythema or pain. Unsure if it gets worse throughout the day. Kate sign negative in PAT. No tenderness to palpation. Will be following up with ortho on 12/24/21 and will discuss ankle swelling at that time with ortho. If swelling continues- patient will follow up with PCP. If swelling gets worse- pt instructed to go to ER. Patient denies chest pain, shortness of breath, dyspnea on exertion, reflux, cough, wheezing, palpitations. No hx of seizures, stroke, IA. No hx of blood clots or blood transfusions Physical Exam Vital Signs VITALS BP 143/88 P 66 TEMP 98.4 SP02 96% RESP 16 Constitutional no acute distress ENMT Mouth: no TMJ clicking Thyromental Distance: > or= 3.5 Finger Breadths (3.5) Mallampati Class: I Dental implant post on bottom right molar Crowns to side teeth and molars Neck neck extension not limited Respiratory normal respiratory effort; no respiratory distress Auscultation: lungs clear to auscultation bilaterally; no wheezes Cardiovascular Rate/Rhythm: regular rate and regular rhythm Heart Sounds: no murmur Vessels: no carotid bruit Musculoskeletal Spine: no pain with cervical ROM Extremities: extremities normal to inspection Psychiatric Orientation: alert Lab Results Anesthesia Preop Results Results Anesthesia Widget: WBC 5.72 K/uL (4.8-10.8) 06/29/22 Hgb 11.8 g/dL (12.0-16.0) L 12/22/21 Hct 36.2 % (37-47) L 12/22/21 Plt 246 K/uL (130-400) 12/22/21 Na 140 mmol/L (136-145) 12/22/21 K 3.6 mmol/L (3.5-5.1) 12/22/21 Cl 107 mmol/L (98-107) 12/22/21 CO2 27 mmol/L (21-32) 12/22/21 BUN 16 mg/dl (6-23) 12/22/21 Creat 0.76 mg/dl (0.6-1.2) 12/22/21 Glucose Level 83 mg/dl (70-99(Fasting)) 12/22/21 PT 10.6 Seconds (9.0-12.0) 12/22/21 PTT 26.6 Seconds (21.0-31.0) 12/22/21 INR 1.0 (0.9-1.1) 12/22/21 HA1c 5.6 % (4.5-5.6) 12/08/21 Urine Color Yellow 12/22/21 Urine Appearance Clear (Clear) 12/22/21 Urine pH 6.0 (4.5-7.5) 12/22/21 Urine Specific [place] 1.017 (1.000-1.030) 12/22/21 Urine Protein Negative (Negative) 12/22/21 Urine Glucose (UA) Negative (Negative) 12/22/21 Urine Ketones Negative (Negative) 12/22/21 Urine Blood Negative (Negative) 12/22/21 Urine Nitrite Negative (Negative) 12/22/21 Urine Bilirubin Negative (Negative) 12/22/21 Urine Urobilinogen Negative (Negative) 12/22/21 Urine Leukocyte Esterase Negative (Negative) 12/22/21 Blood Type O Positive 12/22/21 Antibody Screen NEGATIVE 12/22/21 Testing Laboratory Results *Anemia improved from 201912/08/21= HGB A1C: 5.6 Electrocardiogram Date: 12/22/21 Findings: + NSR @ (68bpm ) Normal EKG per cardio. Chest X-Ray Date: 12/22/21 Findings: + NAD
[~2022-01-06 06:50] MED LIST changes: +BUPIVACAINE 0.5 % 5 MG/1 ML PF 10ML VIAL ONE; -GABAPENTIN 600 MG DOSE PO SCH; +General Order Problem(s) SCH; -LR 500ML BOLUS, THEN 15ML/HR IV SCH; -LR 60ML/HR IV SCH; -METOCLOPRAMIDE HCL 10 MG TABLET PO SCH; -ROPIVACAINE 0.5% HCL/PF 150 MG, BUPIVACAINE 0.5% MPF 30 ML, EPINEPHrine 0.15 MG, Ketoro... INFIL SCH; +ROPIVACAINE 0.5% HCL/PF 150 MG, BUPIVACAINE 0.75% MPF 20 ML, EPINEPHrine 30MG/30ML (OR ... INSTIL SCH; +Scopolamine 1 MG TDSY TD SCH; -cloNIDine HCL 0.1 MG/24 HR TRANSDERM SYS TD SCH; -oxyCODONE HCL 10 MG TABCR (OxyCONTIN) PO SCH
[2022-01-06] MEDS: LR 60ML/HR IV SCH ×2 (07:45→09:03)
[2022-01-06] MEDS ORDERED: MIDAZOLAM HCL 1 MG/ML 2ML VIAL ONE (08:26)
[2022-01-06] MEDS ORDERED: ATROPINE SULFATE 0.1 MG/ML 10ML SYR IV PRN (08:27)
[2022-01-06] MEDS ORDERED: fentaNYL citrate 100 MCG/2 ML VIAL IV PRN (08:27)
[2022-01-06] MEDS ORDERED: ONDANSETRON INJ 2 MG/ML 2 ML VIAL IV PRN ×2 (08:27→11:07)
[2022-01-06] MEDS ORDERED: ePHEDrine sulfate 50 MG/ML AMP IV PRN (08:27)
--- NOTE | 2022-01-06 08:51 | History & Physical Bridge Note ---
Date of Service January 06, 2022 History & Physical Bridge Note I have examined the patient, reviewed the History & Physical and in the interval since the performance of the History & Physical I have noted the following changes of clinical significance: no changes noted
[2022-01-06] MEDS ORDERED: PROPOFOL IV EMULSION 10 MG/ML 20 ML VIAL IV ONE (09:46)
--- NOTE | 2022-01-06 10:55 | Operative Report ---
Post Operative Report Pre & Post Diagnosis Operation Date: 01/06/22 09:20 Pre-Op Diagnosis: Right Hip Osteoarthritis Post-Op Diagnosis: Right Hip Osteoarthritis I identified the patient and participated in the time-out.: Yes Procedure Operation Date: 01/06/22 09:20 Actual Procedures p Right Total Hip Arthroplasty--Uncemented(Right) - Jordi Rogers MD Surgeon Jordi Rogers MD Digital Circuit Designer ROMY Lopez PA-C. No resident or fellow was available to assist. Estimated Blood Loss 100 Findings Consistent with Post-Op Diagnosis Fluids 400 Specimens Right femoral head Anesthesia Type Spinal MAC Complications none Disposition Disposition: Recovery Room Indications 66-year-old female with right hip arthritis refractory to conservative management. X-rays demonstrate [id number] disease with coxa profunda. I had a long discussion with her about the risks and benefits of surgery, alternatives of surgery, and expected outcomes. After reviewing all these she elected to proceed with surgery. All questions were answered. Informed consent was signed. Description of Procedure Patient was identified in the preoperative holding area and the surgical site, right hip, was marked. A spinal anesthetic was placed, then the patient was brought back to the main operating room, placed in the operating table and moved into the lateral decubitus position. Axillary roll was placed. All bony prominences were padded. Perioperative antibiotics and tranexamic acid 1 gram IV were administered. Operative extremity was prepped and draped in the normal sterile fashion. Prior to incision a multidisciplinary timeout was called. All in the room were in agreement. We began by making an incision for a posterior approach to the hip. We dissected down through subcutaneous tissues to the level of the fascia. The fascia was incised in line with the incision. Charnley bow was placed. The trochanteric bursa was excised. The piriformis and short external rotators were dissected off the posterior aspect of the hip. A box cut was made in the capsule. The femoral head was dislocated. The femoral neck cut was made at our preoperative template. The acetabulum was then exposed. The labrum was sharply excised. Contents of the cotyloid fossa were removed with electrocautery. We then began reaming at a size 8 mm less than our pr eoperative template. We reamed up by [address] the way up to a size 52 mm cup. This gave us good bleeding cancellus bone circumferentially. The acetabulum was then irrigated out and dried. The real Acworth Gription cup was then impacted down into position with 45 degrees of lateral opening and 25 degrees of anteversion. A single cancellous bone screw was placed up into the ilium. Excellent fixation was obtained. A trial liner for a 36 mm femoral head was then placed. Next we turned our attention to the femur. The lateral neck was removed with a box osteotome. Intramedullary guide was used followed by the lateralizing reamer. We then reamed up to a size 6 [place] stem. We then broached all the way up to a size 6. We began trialing with a standard offset neck and a +1.5 mm offset head. Hip was reduced. Leg lengths were symmetric. The hip was stable in extension and external rotation, and stable in the sleeper position. At 90 degrees of hip flexion the hip could be internally rotated 55 degrees before levering out of the cup. I was very happy with the stability exam. Therefore the hip was dislocated and the femoral trial was removed. The acetabulum was re-exposed, and the trial liner was removed. An Altrx polyethylene liner for a 36 mm femoral head was then impacted into the shell. The locking mechanism was checked to ensure that it had engaged which it had. The femur was re-exposed. The femoral canal was irrigated and dried. The real size 6 standard offset [place] femoral stem was opened up. This was impacted down into position. It sat at the same level as the femoral trial. Therefore the 36 mm ceramic femoral head with a +1.5 mm offset was opened up and gently impacted down onto the trunnion. The hip was atraumatically reduced. Another 1 gram of IV tranexamic acid was started prior to closure. The wound was irrigated out with sterile Betadine solution. The periarticular injection cocktail was then placed. The short external rotators, piriformis, and posterior capsule were repaired through drill holes in the greater trochanter using #2 Vicryl. The fascia was run with a looped #1 PDS. The subcutaneous layer was closed with #1 PDS. The dermal layer was closed with 2-0 Vicryl. Zip line was used for the skin followed by a Silverlon dressing. A compressive dressing was then placed. The patient was then rolled supine. Leg lengths were rechecked and were symmetric. An abduction pillow was placed. Sedation was lifted and the patient was transferred to recovery room in stable condition. Summary of implants: Depuy Acworth Gription Acetabular Shell Sector Cup, 52 mm outer diameter Acworth Cancellous bone screw, 6.5 x 30 mm Acworth Altrx Polyethylene Acetabular Liner, Neutral, with a 36 mm inner diameter DePuy [place] Femoral stem with Porocoat, 12/14 taper, size 6 standard offset 36 mm ceramic femoral head with +1.5 offset Postoperative course: Patient will be admitted to the hospital from the recovery room. Patient will be weightbearing as tolerated with posterior hip precautions. Aspirin for DVT prophylaxis I attest to the content of the Intraoperative Record and any orders documented therein. Any exceptions are noted below.
--- NOTE | 2022-01-06 11:06 | Operative Report ---
Post Operative Report Pre & Post Diagnosis Operation Date: 01/06/22 09:20 Pre-Op Diagnosis: Right Hip Osteoarthritis Post-Op Diagnosis: Right Hip Osteoarthritis I identified the patient and participated in the time-out.: Yes Procedure Operation Date: 01/06/22 09:20 Actual Procedures p Right Total Hip Arthroplasty--Uncemented(Right) - Jordi Rogers MD Surgeon Jordi Rogers MD Tank Pumper Panelboard ROMY Lopez PA-C. No resident or fellow was available to assist. Estimated Blood Loss 100 Findings Consistent with Post-Op Diagnosis Specimens Right femoral head Description of Procedure I was present during the entire case assisting with positioning, prepping, draping, wound retraction, wound closure, dressing and abduction pillow place ment. No fellow present. Please see Dr. Rogers procedure note for specifics of the case. I attest to the content of the Intraoperative Record and any orders documented therein. Any exceptions are noted below.
[2022-01-06] MEDS ORDERED: diphenhydrAMINE 50 MG/ML VIAL IV PRN (11:07)
[2022-01-06] MEDS ORDERED: METOCLOPRAMIDE HCL INJ 5 MG/ML 2 ML VIAL IV PRN (11:07)
[2022-01-06] MEDS ORDERED: oxyCODONE HCL IR 5 MG TAB (IMMEDIATE RELEASE) PO PRN (11:07)
[2022-01-06] MEDS ORDERED: ALUMINUM/MAGNESIUM SUSP 30 ML UDC PO PRN (11:07)
[2022-01-06] MEDS ORDERED: NALOXONE HCL 0.4 MG/1 ML VIAL/CARP IV PRN (11:07)
[2022-01-06] MEDS ORDERED: bisacodyL 10 MG SUPP PR PRN (11:07)
[2022-01-06] MEDS ORDERED: MAGNESIUM HYDROXIDE SUSP 30 ML UDC PO PRN (11:07)
[2022-01-06] MEDS ORDERED: IBUPROFEN 200 MG TAB PO PRN (11:11)
--- NOTE | 2022-01-06 11:56 | Anesthesiology Progress Note ---
Date of Service January 06, 2022 Anesthesia Post Procedure Vital Signs Vital Signs: Temp Pulse Pulse Resp BP Pulse Ox O2 Del Method 01/06/22 11:50 97.7 F 67 16 145/85 H 100 Room Air 01/06/22 11:30 97.5 F L 69 17 124/74 98 Room Air 01/06/22 11:20 68 18 129/67 100 Oxymask 01/06/22 11:10 72 14 124/78 100 Oxymask 01/06/22 11:04 97.2 F L 78 12 124/82 98 Oxymask 01/06/22 07:19 99.0 F 82 20 156/48 H 97 Room Air O2 Flow Rate 01/06/22 11:50 01/06/22 11:30 01/06/22 11:20 12 01/06/22 11:10 12 01/06/22 11:04 12 01/06/22 07:19 Pain Intensity Right Hip: Pain Intensity: 4 Transfer of Care Handoff Completed per policy Notes Mental Status: alert / awake / arousable and participated in evaluation Patient Amnestic to Procedure: Yes Nausea / Vomiting: adequately controlled Pain: adequately controlled Airway Patency, RR, SpO2: stable & adequate BP & HR: stable & adequate Hydration State: stable & adequate Neuraxial Anesthesia: was administered and sensory block is resolving Anesthetic Complications: no major complications apparent and Pt Satisfied with anesthetic care
[2022-01-06] MEDS: SODIUM CHLORIDE 0.9% 1000ML 1,000 ML IV SCH ×2 (12:37→20:15)
--- NOTE | 2022-01-06 12:53 | XRay Report ---
XR pelvis 1-2V routine CLINICAL HISTORY: Post Surgical. Status post total hip replacement COMPARISON STUDY: 12/24/2021 TECHNIQUE: [A single AP radiograph was obtained. FINDINGS: The patient is status post right total hip replacement with noncemented components. The prosthetic co mponents are in anatomic alignment. There is no acute abnormality identified. IMPRESSION: 1. Status post right total hip replacement. ACT 112: Negative or not required by law. Electronically signed by: Pj Means M.D. 01/06/2022 12:51 PM
[2022-01-06] MEDS: KETOROLAC TROMETHAMINE 15 MG/ML VIAL IV SCH ×2 (13:23→20:10)
[2022-01-06] MEDS: ACETAMINOPHEN 500 MG TAB PO SCH ×2 (13:51→20:10)
[2022-01-06] MEDS: Scopolamine CHECK PATCH PLACEMENT SCH (17:04)
[2022-01-06] MEDS ORDERED: TRANEXAMIC ACID / 0.7% NACL 1,000 MG/100 ML BAG IV SCH (17:30)
[2022-01-06] MEDS: ceFAZolin 2000MG 2,000 MG/15 ML SYR IV SCH (17:44)
[2022-01-06] MEDS: DOCUSATE SODIUM 100 MG CAP PO SCH (20:10)
[2022-01-06] MEDS ORDERED: SENNA 8.6 MG TAB PO SCH (21:00)
[2022-01-07] MEDS: KETOROLAC TROMETHAMINE 15 MG/ML VIAL IV SCH ×2 (01:10→07:28)
[2022-01-07] MEDS: ceFAZolin 2000MG 2,000 MG/15 ML SYR IV SCH (01:10)
[2022-01-07] MEDS: Scopolamine CHECK PATCH PLACEMENT SCH ×2 (01:10→07:29)
[2022-01-07] MEDS: ACETAMINOPHEN 500 MG TAB PO SCH (05:36)
[2022-01-07 07:03] LABS: Basophils # (auto) 0.02 K/uL (0-0.2); Basophils % (auto) 0.2 %; Hematocrit (blood only) 32.1 % (34.1-44.9); Hemoglobin 10.5 g/dl (12.0-16.0); Immature Granulocytes # (auto) 0.05 K/uL (0.00-0.02); Immature Granulocytes % (auto) 0.5 %; Lymphocytes # (auto) 0.98 K/uL (1.2-3.4); Lymphocytes % (auto) 9.2 %; Mean Corpuscular Hemoglobin 29.7 pg (25.0-34.0); Mean Corpuscular Hgb Conc 32.7 g/dL (32.0-36.0); Mean Corpuscular Volume 90.7 fL (80.0-100.0); Mean Platelet Volume 10.6 fL (9.4-12.3); Monocytes # (auto) 0.93 K/uL (0.24-0.82); Monocytes % (auto) 8.7 %; Neutrophils # (auto) 8.71 K/uL (1.4-6.5); Neutrophils % (auto) 81.4 %; Platelet Count 229 K/uL (130-400); RDW Coefficient of Variation 13.2 % (11.5-14.5); Red Blood Count 3.54 M/uL (3.93-5.22); White Blood Count 10.69 K/ul (4.8-10.8)
[2022-01-07] MEDS: DOCUSATE SODIUM 100 MG CAP PO SCH (07:29)
[2022-01-07 07:33] LABS: Calcium 8.8 mg/dl (8.5-10.1); Est GFR (African American) 101.1 ml/min; Est GFR (Non-African American) 87.3 ml/min; Potassium 4.4 mmol/L (3.5-5.1)
[2022-01-07] MEDS ORDERED: dexAMETHasone 4 MG TAB PO SCH (08:00)
[2022-01-07] MEDS ORDERED: CALCIUM CARBONATE 1250MG TAB PO SCH (09:00)
[2022-01-07] MEDS ORDERED: ASPIRIN 81 MG ECTAB PO SCH (09:00)
[2022-01-07] MEDS ORDERED: MULTIVITAMIN TAB PO SCH (09:00)
[2022-01-07] MEDS ORDERED: ASCORBIC ACID 500 MG TAB PO SCH (09:00)
[2022-01-07] MEDS ORDERED: NON-FORMULARY MEDICATION (Glucosamine-Chondroitin [Osteo Bi-Flex] 250-200 mg Tablet) PO SCH (09:00)
[2022-01-07] MEDS ORDERED: CeleBREX 200 MG CAP PO SCH (09:00)
[2022-01-07] MEDS ORDERED: TOCOPHERYL, DL-ALPHA 100 UNITS CAP PO SCH (09:00)
--- NOTE | 2022-01-07 09:41 | Orthopedic Progress Note ---
Date of Service January 07, 2022 Assessment & Plan (1) S/P total hip arthroplasty: Plan: Patient had an uneventful overnight stay following left total hip arthroplasty. Patient is doing very well this morning he is very anxious to go home. Patient is planning on discharge home later this morning with in-home physical therapy using pending sale to [facility]. PT/OT Total hip precautions reviewed Weightbearing as tolerated with walker assistance DVT prophylaxis with aspirin and DAWOOD stockings Pain control with p.o. medication Abduction pillow use x6 weeks postoperatively Keep Silverlon dressing in place Ice with easy wrap Plan is for discharge home today with in-home physical therapy for the First 2 weeks postoperatively Follow-up at [facility] orthopedics as previously scheduled With questions contact the clinic at [phone] Admission and Anticipated Discharge Date Admission Date: January 06, 2022 Subjective This 66-year-old female is day 1 status post right total hip arthroplasty. She is doing very well this morning. She is currently sitting up in bed eating her breakfast. She denies any hip pain whatsoever. She also denies chest pain, shortness of breath, fever, chills, sweats or numbness or tingling in her right lower extremity. Patient states she has been able to transition from her bed to the bathroom and void without issue. She is very anxious to be discharged home. Review of Systems Review of Systems: All systems reviewed & are unremarkable except as noted in Subjective Physical Exam Physical Exam: Right hip: Outer dressing was removed. Silverlon is clean dry and intact. Patient is able perform an active straight leg raise test. She is able to actively dorsi and plantarflex her foot without issue. She does experience slight twinge of pain with light passive internal hip rotation. She has no pain with passive flexion to 90 degrees or right external rotation. Logroll test is negative. Patient is neurovascular intact in right lower extr emity. Results & Data ([facility]) Vital Signs (Past 12 Hours) Vital Signs Temp Pulse Resp BP Pulse Ox O2 Del Method 01/07/22 07:42 36.3 C L 58 L 16 125/76 97 Room Air 01/07/22 03:01 36.9 C 64 16 123/71 98 Room Air 01/06/22 21:57 37.1 C 69 16 109/66 95 Room Air Diagnostic Findings Laboratory Results WBC 10.69 K/ul (4.8-10.8) 01/07/22 06: RBC 3.54 M/uL (3.93-5.22) L 01/07/22 06:29 Hgb 10.5 g/dl (12.0-16.0) L 01/07/22 06:29 Hct 32.1 % (34.1-44.9) L 01/07/22 06: MCV 90.7 fL (80.0-100.0) 01/07/22 06: MCH 29.7 pg (25.0-34.0) 01/07/22 06: MCHC 32.7 g/dL (32.0-36.0) 01/07/22 06: RDW Std Deviation 44.0 fL (36.4-46.3) 01/07/22 06: RDW Coeff of Zonia 13.2 % (11.5-14.5) 01/07/22 06: Plt Count 229 K/uL (130-400) 01/07/22 06: MPV 10.6 fL (9.4-12.3) 01/07/22 06: Immature Gran % (Auto) 0.5 % 01/07/22 06: Neut % (Auto) 81.4 % 01/07/22 06: Lymph % (Auto) 9.2 % 01/07/22 06: Dickson % (Auto) 8.7 % 01/07/22 06: Eos % (Auto) 0.0 % 01/07/22 06: Baso % (Auto) 0.2 % 01/07/22 06: Neut # (Auto) 8.71 K/uL (1.4-6.5) H 01/07/22 06:29 Lymph # (Auto) 0.98 K/uL (1.2-3.4) L 01/07/22 06:29 Dickson # (Auto) 0.93 K/uL (0.24-0.82) H 01/07/22 06:29 Eos # (Auto) 0.00 K/uL (0-0.50) 01/07/22 06:29 Baso # (Auto) 0.02 K/uL (0-0.2) 01/07/22 06: Immature Gran # (Auto) 0.05 K/uL (0.00-0.02) H 01/07/22 06:29 Sodium 138 mmol/L (136-145) 01/07/22 06:29 Potassium 4.4 mmol/L (3.5-5.1) 01/07/22 06:29 Chloride 109 mmol/L (98-107) H 01/07/22 06:29 Carbon Dioxide 24 mmol/L (21-32) 01/07/22 06:29 Anion Gap 5 (3-11) 01/07/22 06:29 BUN 18 mg/dl (6-23) 01/07/22 06:29 Creatinine 0.72 mg/dl (0.6-1.2) 01/07/22 06:29 Est Cr Clr Drug Dosing 86.0 ml/min 01/07/22 06:29 Est GFR ( Amer) 101.1 ml/min 01/07/22 06:29 Est GFR (Non-Af Amer) 87.3 ml/min 01/07/22 06:29 BUN/Creatinine Ratio 25.0 (10-20) H 01/07/22 06:29 Glucose 107 mg/dl (70-99(Fasting)) H 01/07/22 06:29 Calcium 8.8 mg/dl (8.5-10.1) 01/07/22 06:29 SARS-CoV-2, RNA, NAAT NEGATIVE (NEGATIVE) 01/06/22 07:05 Impressions Pelvis X-Ray 01/06/22 11:07 XR pelvis 1-2V routine CLINICAL HISTORY: Post Surgical. Status post total hip replacement COMPARISON STUDY: 12/24/2021 TECHNIQUE: [A single AP radiograph was obtained. FINDINGS: The patient is status post right total hip replacement with noncemented components. The prosthetic components are in anatomic alignment. There is no acute abnormality identified. IMPRESSION: 1. Status post right total hip replacement. ACT 112: Negative or not required by law. Electronically signed by: Pj Means M.D. 01/06/2022 12:51 PM
--- NOTE | 2022-01-07 10:14 | Discharge Summary ---
Date of Service January 07, 2022 Admission HPI Per Admitting Provider HISTORY OF PRESENT ILLNESS: The patient is a pleasant 66-year-old female, who is here today for preoperative history and physical. She is scheduled to have a right total hip arthroplasty by Dr. Rogers on January 06, 2022. She has been having ongoing right hip pain since the beginning of the month. She states that she has had issues on and off with her contralateral left hip in the past, but her right hip started bothering her a little over a month ago, may be around the beginning of October. Since that time, her pain has progressively worsened. She did not have any acute injury. The pain is bothering her with walking, sleeping, and most of her activities of daily living. She received a steroid taper for a week that did not provide any relief. She tried [id number] pain medication without relief. She was also given oxycodone and says that has helped with her pain. She was referred to Dr. Rogers for discussion of surgical intervention. Aggravating activities include everything such as wal nicky, going up and down steps. She also has pain at night and at rest. She states that she does have to use a crutch in the opposite arm to help assist with ambulation. She states that her pain has "crippled her." She has not used a brace, has not had any formal physical therapy for her hip, but she does not feel that she would be able to tolerate it. Due to her failure of conservative treatment, progressively worsening symptoms, surgical intervention was recommended. Admission Exam Per Admitting Provider PHYSICAL EXAM: General: She is alert and oriented x3, she is in no acute distress. She is a well-dressed, well-nourished female. Normal mood and affect. Height is 167 cm, weight is 86.8 kg, and BMI is 31.12. Vital signs performed on December 24, 2021, temperature is 36.5 degrees Celsius, blood pressure is 118/60, heart rate is 81 beats per minute. Respiratory rate is 18 breaths per minute. Oxygenation on room air is 99% and pain is 0/10. HEENT: Head: Atraumatic, normocephalic. Eyes: Extraocular movements intact. Pupils are equal, round, and reactive to light. Sclerae are normal. Ears: Hea ring is grossly normal. TMs are clear with normal light reflex. Nose: Nares are patent bilaterally. Throat: Oropharynx is clear. Mucous membranes moist. Good dentition. Uvula midline. Neck: Supple. No lymphadenopathy. Nontender to palpation. Lungs: Clear to auscultation bilaterally. No adventitious sounds. No accessory muscle use. Heart: Regular rate and rhythm. Normal S1, S2. No murmurs, rubs, or gallops appreciated. Abdomen: Soft, nontender, nondistended. Normal bowel sounds heard in all 4 quadrants. Exam of right hip shows patient to be neurovascularly intact with palpable pulses. Sensation is intact to light touch, dorsal and plantar aspect of the foot. Range of motion is limited to flexion of only 105 degrees, external rotation of 40 degrees and internal rotation of 10 degrees. Positive impingement scour test. Principal Diagnosis Right hip osteoarthritis Discharge Exam Right hip: Outer dressing was removed. Silverlon is clean dry and intact. Patient is able perform an active straight leg raise test. She is able to actively dorsi and plantarflex her foot without issue. She does experience slight twinge of pain with light passive internal hip rotation. She has no pain with passive flexion to 90 degrees or right external rotation. Logroll test is negative. Patient is neurovascular intact in right lower extremity. Discharge Data Allergies Allergy/AdvReac Type Severity Reaction Status Date / Time No Known Allergies Allergy Unknown Verified 01/06/22 07:15 Procedures Performed Operation Date: 01/06/22 09:20 Actual Procedures p Right Total Hip Arthroplasty--Uncemented(Right) - Jordi Rogers MD Hospital Course (1) S/P total hip arthroplasty: Patient had an uneventful overnight stay following right total hip arthroplasty. Patient is doing very well this morning she is very anxious to go home. Patient is planning on discharge home later this morning with in-home physical therapy using [facility]. PT/OT Total hip precautions reviewed Weightbearing as tolerated with walker assistance DVT prophylaxis with aspirin and DAWOOD stockings Pain control with p.o. medication Abduction pillow use x6 weeks postoperatively Keep Silverlon dressing in place Ice with easy wrap Plan is for discharge home today with in-home physical therapy for the First 2 weeks postoperatively Follow-up at [facility] orthopedics as previously scheduled With questions contact the clinic at [phone] Total Time Total Time Spent Total Time Spent (In Minutes): 20 mins Discharge Plan Discharge Items Patient Disposition: Home - Home Health Services Reason For Visit: Right Hip Osteoarthritis Discharge Diagnosis: Right Hip Osteoarthritis Activity: As commented below Lifting: None Bathing: Keep incision dry Bathing Comment: May shower tomorrow Sexual Activity: Wait until after follow-up appointment Exercise/Sports: Wait until after follow-up appointment Weightbearing Comment: as tolerated with walker assistance Non-emergency contact: Surgeon Call non-emergency contact if: you have any medication questions, your pain is not controlled, your temperature is above 101.5, your wound has increased drainage and your wound pain has increased Follow-up/Referrals: Richard Braden MD [Primary Care Provider] - Diet: Regular Addtl Attending Provider Instructions: Post-operative Instructions Dear Patient and Family/Friends, Before you are discharged from the hospital, it is important to know what to expect when you get home after surgery. To that end, we have created this sheet of discharge instructions which covers many commonly asked questions. Make sure you go through this sheet in its entirety with your nurse before you are discharged. Please note that we will go over the specifics of your surgery and recovery when you return for your first post-operative visit. Sincerely, Dr. Rogers Medications 1. Oxycodone 5 mg: take 1-2 tabs every 4-6 hours as needed for pain relief. A prescription for this medication will be sent to your pharmacy. 2. Diclofenac Sodium 75 mg: take 1 tab twice daily for post operative inflammation relief. A prescription for this will be sen to your pharmacy with 1 refill. 3. Aspirin 81 mg: take 1 tab twice daily for the first 30 days post operatively for blood clot prevention. Please purchase. 4. Extra Strength Tylenol 500 mg: take 2 tabs every 6-8 hours as needed for additional pain relief. Please purchase. Pain Expect to be in a fair amount of pain after surgery. Remember, our goal is not to eliminate your pain, but to make it tolerable. It is a good idea to stay ahead of your pain by taking the medications you were prescribed once you get home. Typically, the pain starts improving 3-7 days after surgery. You should start weaning off the narcotic pain medication (oxycodone, hydrocodone, hydromorphone, morphine) as soon as your pain improves. Please call our office if your pain is not adequately controlled. Ice Ice your operative site at least 5 times a day for 15-30 minutes at a time. Make sure you have a thin cloth between the ice or cooling unit and your skin to prevent ron bite. This is especially important if you received a nerve block. Continue icing your operative site for the first 5-7 days after surgery, then as needed. Diet/Nausea/Vomiting Start by drinking clear liquids and eating crackers. If you can tolerate this, then you may resume your normal diet. If you feel nauseated or vomit, take Zofran/ondansetron (if prescribed). Please call our office if you have intractable nausea or vomiting, or, if after hours, you may go to the Emergency Room for help. Constipation Constipation is a common side effect of narcotic pain medication. If you have not had a bowel movement within 2 days after surgery, we recommend purchasing an over the counter laxative such as Milk of Magnesia, Dulcolax, or Miralax from a local pharmacy, and taking it as instructed. Call our clinic if any questions. Slings and Braces If you were placed in a sling or brace, it must be worn at all times, including sleep. You may remove your sling or brace for physical therapy, home exercises, and showering. The length of time you will be in your brace and range of motion restrictions depends on what surgery you had; these details will be reviewed at your first post-operative appointment. Nerve block The anesthesia team sometimes places a nerve block to help with post-operative pain control. This results in significant numbness and inability to move the extremity. The nerve block usually wears off in 8-12 hours, but sometimes can last up to 24 hours. Please call our office if you are still unable to move your extremity after 24 hours, unless you received a pain pump to take home. Nerve blocks typically wear off quickly, so start taking pain medication as soon as you start feeling soreness near your surgical site. Weight bearing and Range of Motion. Do not bear any weight through your operative extremity immediately after surgery. If you had upper extremity surgery, do not lift anything with that arm. If you are in a knee brace, keep it locked in place until your follow-up. We will discuss your weight bearing, range of motion, and lifting restrictions in detail at your first post-operative appointment. Continuous Passive Motion (CPM) Machine If you were prescribed a CPM machine, it will start after your first post-operative appointment, at which time we will give you instructions on the range of motion settings and duration of treatment Physical therapy You will be given a prescription for physical therapy or occupational therapy at your first post-operative appointment. Typically, patients start therapy within 1 week of surgery Wound care and showering We will inspect your wound at your first post-operative visit, and may do a dressing change at that time. Most patients will be in a water-proof dressing that is removed 14 days after surgery. It is normal to see some dried blood on the dressing. Do not remove your dressing, paper strips or sutures yourself unless you are given permission. Showering is allowed the day after surgery. Do not scrub or remove any dressings. The wound should not be submerged underwater (i.e. in a bathtub or pool) until 4 weeks after surgery DAWOOD stockings If you were given white stockings, these are to be worn at all times except to shower (on both legs) for the first 2 weeks after surgery. Driving You may not drive while taking narcotic pain medication or while in a cast, splint, sling or brace. You, the patient, need to make the final determination about when you are safe to drive, however, the earliest you may consider driving after surgery is below: Hand/Wrist/Elbow Surgery: 3 days Shoulder Surgery: 2 weeks Hip,/Knee/Ankle Surgery: 4 weeks Fracture repair: 6 weeks Return to Work Your return to work depends on what surgery was done and what type of work you do. Please bring any paperwork your employer needs completed to your first post-operative visit. Also, bring a description of your job duties, as this helps us to understand what risks you may face at work. Travel Avoid long distance travel (greater than 1 hour) in airplanes and cars for the first 6 weeks after surgery. If you must travel, you need to have a Doppler ultrasound done before you travel to rule out a blood clot in your legs. Follow-up You should have a follow-up appointment already scheduled 1-2 days after surgery. If not, please contact our office to make this appointment before you leave the hospital. When to call the office It is normal to have swelling and bruising in the limb that was operated on. This will improve with time. It is also normal to have fevers for the first 2 days after surgery. Reasons you should call your doctor include: Uncontrolled pain; Nausea, vomiting, or constipation that does not improve with medication; Fevers over 101.5, chills, sweats; Drainage or bleeding from the wound; Foul odor; Spreading areas of redness; Any other concerns Pending Studies at Discharge: No Stand-Alone Forms: My [facility] Medications and DC Order Prescriptions: New oxycodone 5 mg tablet 5 mg PO Q4H MDD ongoing tx Qty: 28 0RF diclofenac sodium 75 mg tablet,delayed release (DR/EC) 75 mg PO BID 30 Days Qty: 60 1RF Continued calcium 600 mg Capsule 600 mg PO QAM ibuprofen 200 mg Tablet 200 mg PO Q6H PRN (Reason: Pain) glucosamine-chondroitin [Osteo Bi-Flex] 250-200 mg Tablet 2 tab PO QAM Hair, Skin, Nails with Biotin 7.5-7.5-1,250 mg-unit-mcg Tablet,Chewable 1 tab PO QAM Discharge Orders: Discharge Order (Routine); Ordered 01/07/22 Ordered By: Bola Lopez Admission Data Admit Date/Time: 01/06/22 11:07 Attending Provider: Jordi Rogers Admit Provider: Jordi Rogers Primary Care Provider: Richard Braden
== END 2022-01-07 13:40 | disposition home health service (06) ==
LOC: ASU 06:50 → 3E 06:50

== ENCOUNTER 2023-06-08 05:11 | Observation (INO) ==
--- NOTE | 2023-05-16 16:38 | History & Physical Report ---
Date of Service May 16, 2023 Assessment & Plan (1) Osteoarthritis of left hip: Plan: PRE-OP Diagnosis: Left hip osteoarthritis Planned Procedure: Left total hip arthroplasty Plan: Patient is scheduled to undergo this procedure at the [facility] with a 23-hour observation admission with Dr. Rogers on May. Risks and complications of the procedure such as: Infection, bleeding, pain, scarring, nerve blood vessel damage, weakness, wound problems, stiffness, incomplete relief of symptoms, hardware failure, hardware loosening, wear, fracture, tendon or ligament injury, dislocation, leg length inequality, blood clots, Embolism, heart attack, stroke and were explained to the patient at her visit today. Informed consent to perform the procedure was obtained. Patient also understands risks of proceeding with surgical intervention during the COVID-19 pandemic. Currently she is asymptomatic and states she has not been in contact with anyone positive for the virus recently. States she plans on going to the lab tomorrow to obtain a CBC with differential, complete metabolic panel, PT/INR, urinalysis, urine culture and sensitivity, EKG, and a nasal culture for MRSA. Patient will also need preoperative medical clearance from their primary care provider. She has that appointment scheduled for June 02. We have already obtained clearance from her embroidery designer who would like her to continue taking her methotrexate. Patient states that she plans on doing in-home physical therapy for the first 1 to 2 weeks postoperatively with [facility]. Patient states that she would like to do outpatient physical therapy at our PT clinic with Krystal Foley. Patient has a walker, raised toilet seat, shower chair and a hip kit. During today's visit we reviewed the total hip packet as well as precautions. We discussed discharge planning from the hospital. I provided paperwork to obtain a handicap placard for their vehicle. We discussed lectures offered by [facility] in regards to joint replacement surgery via Zoom. I advised the patient that upon discharge from hospital we will prescribe a narcotic pain medication and anti-inflammatory. Patient will also be on an 81 mg aspirin twice daily for blood clot prevention. Patient is scheduled to follow-up with Betty Moore PA-C on June 20 for her 2-week postoperative follow-up. At that visit we will Provide the patient with an order for outpatient physical therapy and rehab protocol. Patient verbalizes understanding of all information provided during today's visit. This chart was completed utilizing [employer] voice recognition software. Grammatical errors, random word insertions, pronoun errors, and in complete sentences are an occasional consequence of the system. Any questions or concer ns about the content, text, or information contained within the body of this dictation should be addressed directly to the physician for clarification. History of Present Illness Chief Complaint: Chief Complaint: Left hip pain Primary Care Provider: Raoul Stahl DO History of Present Illness (including history relevant to procedure): This 67-year-old female presents to the clinic today for her preoperative history and physical examination.. Patient states that back in May 2022 she had an ultrasound-guided corticosteroid injection in the left hip that did help with her pain up until a few months ago. Patient states that she recently saw a embroidery designer Dr. Swain in [facility] and was diagnosed with rheumatoid arthritis. She states she also had a recent appointment with her primary care provider Dr. Stahl. She states that at that visit she had x-rays of her left hip performed showing end-stage arthritis and avascular necrosis. Patient states that she had her right hip replaced by Dr. Rogers last year (January 06, 2022) and has had great results. Patient is electing to proceed with left total hip arthroplasty for her severe arthritis. Review Of Systems: A 12 point review of systems is performed and is unremarkable except for those things stated in the HPI and past medical history. Past Medical History: Problems: Tailor's bunion of both feet Ambulatory dysfunction Leg weakness, bilateral Hip pain Arthritis of right hip Impingement syndrome of right shoulder Tenosynovitis of finger Finger pain, left Left knee DJD Left knee pain Diarrhea Vitamin D deficiency Status post right knee replacement Right knee DJD Primary osteoarthritis of left hip Sclerosing adenosis of left breast Knee pain, right Procedure History Procedure Procedure Date Comments left long finger ORIF - 03/22/12. Forehead - mole removed Hysterectomy - 2006-Vaginal, took 1 ovary Meniscus - Right knee-Repair 05/2012 fx L. middle finger repair - 2011 Colonoscopy 04/06/2022 - Repeat Colonoscopy 5 years. - COLO to cecum, diveticulosis, rectal eythema bx, repeat 5 yaears. TOTAL HIP ARTHROPLASTY 01/06/2022 - Right Total Hip Arthroplasty--Uncemented Plain X-ray of left hand 06/25/2021 - IMPRESSION: 1. Soft tissue swelling within the left index finger. No acute fractures.2. Old posttraumatic changes as described above.3. Scapholunate dissociation. Mammogram 03/26/2021 - Impression:There is no mammographic evidence of malignancy History of arthroplasty of right knee 05/05/2020 Chest X-ray 04/09/2020 - impression: 1. no acute disease in the chest2. suspect emphysema EKG finding 04/09/2020 - normal sinus rhythmnormal ECG Mammogram - screening 03/25/2019 - IMPRESSION: No mammographic evidence of malignancy. 1 year screening is recommended Mammogram - screening 03/23/2018 - IMPRESSION:No mammographic evidence of malignancy. A 1 year screening mammo is recommended Colonoscopy 09/27/2016 - pathology: A: Ascending colon polyps, multiple biopsies: Frgments of sessile serrated polyp. Comment: There is no evidence of malignancy. sessile serrated polyps can be seen in hyperplastic (serrated) polyposis syndrome. B: Rectal polyp, bx: Hyperplastic polyp. - One 2 mm polyp in the rectum, removed with a cold biopsy forcepts. Resected and retrieved.Two 7 mm polyps in the ascending colon, removed with a hot snare. Resected and retrieved.The examined portion of the ileum was normal.Resume regular dietContinue present medicationsAwait pathology results.Repeat Colonoscopy for surveillance based on pathology results. Diagnostic colonoscopy 09/27/2016 Mammogram 09/13/2016 - The focal architectural distortion in the 3:00 left breast has not significantly changed compared to the prior exam and also appears stable on the 2-D mammographic views datin back to 2011. With approximately 5 years of stability this is most likely benign. However, pathology results did not confirm the suspected radical scar and were considered disordant. The patient consulted with Dr. Sneed, general surgery and they opted to follow this lesion as opposed to surgical excisional biopsy at this time. Overall, I still recommend surgical excision but if the patient wishes close follow up that seems reasonable given the length of mammographic stability and we will continue to follow closely. The patient is due for annual bilateral mammographiy in 6 months and she scheduled that follow-up appointment prior to leaving the department. Mammogram 03/16/2016 - Amended report; An asymmetry with possible architecture distoertion in the left breast is indeterminate. There is no evidence of malignancy within the right breast. - Pathology: From the US guided vaccum-assisted core needle biopsy of a subtle area of architectural distortion in the 3:00 left breast yielded adenosis. Negative for DCIS and invasive carcinoma. Given that the mammographic appearance represented focal architectural distortion this is considered discordant and surgical consultation for surgical excision of the lesion is recommended. The results and recommendations were discussed with the patient at 11:20am on 03/18/16. - s/p US guided core needle biopsy of a focal area of architectural distortion in the 3:00 left breast, with bx marker placed at the site. Ultrasound, breast, unilateral, real time with image documentation, including axilla when performed; limited 03/08/2016 - Ultrasound guided core needle biopsy is recommended for an ill-defined area of architectural distortion in the 3:00 left breast, 4 cm from the nipple correlating with mammographic distortion. Differential considerations include radial scar and carcinoma. Mammogram - screening 03/03/2016 - Impression: An asymmetry with possible architectural distortion in the left breast is indeterminate.There is no evidence of malignancy within the right breast.The patien will be called to schedule an appt. Mammogram - screening 02/26/2015 - Impression: There is no mammographic evidence of malignancy. A 1 year screening mammogram is recommended. The patient will receive written notification of the results. Bone density scan 08/21/2014 Mammogram 02/11/2014 - Normal Allergies and Sensitivities: NKA Current Home Meds: (Last Updated 05/16 15:42) calcium-vitamin D (Super Calcium 600 + D3 400) ferrous sulfate (Feosol 200 mg (65 mg elemental iron) oral tablet) every other day folic acid (folic acid 1 mg oral tablet) 1 mg PO Daily methotrexate (methotrexate 2.5 mg oral tablet) TAKE 4 TABLET BY MOUTH EVERY 7 DAYS omega-3 polyunsaturated fatty acids (Víctor Antartic Krill Oil) predniSONE (predniSONE 5 mg oral tablet) 10 mg TAKE 2 TABLETS BY MOUTH EVERY DAY DIRECTED Initial Wt: 05/16 86.0 kg 189 lb Allergies Allergy/AdvReac Type Severity Reaction Status Date / Time No Known Drug Allergies Allergy Verified 04/28/23 08:39 Home Medications Medication Instructions Recorded Confirmed Type calcium 600 mg capsule 600 mg PO QAM 12/20/21 04/28/23 History diclofenac sodium 75 mg 75 mg PO BID 04/28/23 04/28/23 History tablet,delayed release ferrous sulfate 325 mg (65 mg 325 mg PO DAILY 04/28/23 04/28/23 History iron) tablet (Feosol) folic acid 1 mg tablet 1 mg PO DAILY #90 tabs 04/28/23 04/28/23 Rx krill 1,000 mg-omega-3 170 mg-dha 1 cap PO BID 04/28/23 04/28/23 History 50 mg-epa 80 td-bnziqc-pjxki capsule (krill oil) methotrexate sodium 2.5 mg tablet 10 mg (4 x 2.5 mg) PO Q7D #16 tabs 04/28/23 04/28/23 Rx prednisone 5 mg tablet 5 mg PO .COMPLEX #90 tabs 04/28/23 04/28/23 Rx Past Med/Surg History Medical History Rheumatoid arthritis No significant past medical history Snoring No witnessed apnea. No hx of sleep study Nausea and vomiting after administration of anesthetic agent History of COVID-19 06/2021- VERY MILD, COLD SYMPTOMS- NO HOSPITALIZATION, NO CURRENT ISSUES Osteoarthritis Surgical History S/P total hip arthroplasty S/P colonoscopy Status post right knee replacement 04/2020-[facility] Hx of hysterectomy vaginal History of hand surgery left hand middle finger repair Hx of arthroscopy of right knee Family History Sister Hypertension Heart disease Mother Hypertension Social History Smoking Status: Never smoker Second Hand Exposure: No; Do You Dip or Chew Tobacco: No; Hx Alcohol Use: Yes Alcohol type: wine Hx Substance Use: Yes (LESS THAN ONCE PER MONTH) Preferred Language: Greenlandic Communication Ability: Effective Box Worker Required: No Beliefs That Will Affect Care: None marital status: Current Living Situation: Spouse Feels Safe at Home: Yes Assistive Devices: Walker Review of Systems All systems reviewed & are unremarkable except as noted in Subjective Physical Exam Physical Exam: Physical Exam: (relevant to the procedure, including heart and lung evaluation) General: Alert and oriented x3 with proper grooming and hygiene Eyes: Pupils are equal react to light with accommodation. Extraocular movements are intact Throat: Posterior oropharynx clear with absence of edema, erythema or exudate. Dentition is appropriate Cardiac: Regular rate and rhythm with no murmurs or gallops appreciated Lungs: Clear to auscultation throughout with no wheezing, rales or rhonchi Abdomen: Mildly obese, nondistended, nontender with NABS. Extremities: Left hip; flexion is limited to 90 degrees. Internal rotation to 0 degrees, external rotation to 50 degrees. Logroll testing causes referred pain to the groin. Stinchfield test is positive. Scour and impingement test positive. Patient has tenderness to palpation in the groin area. She is neurovascularly intact. Neuro: Cranial nerves II through XII are intact with no motor or sensory deficit Skin: Normal in appearance with no open skin areas or discharge Results & Data Diagnostic Findings Studies (relevant to the procedure): X-rays obtained on May 08 reviewed and they show end-stage arthritis affecting the left hip with osteophyte formation as well as question of avascular necrosis of the femoral head/neck.
--- NOTE | 2023-06-01 10:19 | Anesthesiology Consultation ---
Date of Service June 01, 2023 Assessment & Plan (1) Encounter for pre-operative examination: Chart Review Chart Review: Acceptable Risk for Surgery and Patient NOT seen in Pre Admission Testing Consults Requested none History Surgery Operation Date: 06/08/23 07:00 Proposed Procedures p Left Total Hip Arthroplasty - Jordi Rogers MD Height/Weight Height: 5 ft 6.5 in Weight: 88.451 kg Allergies Allergy/AdvReac Type Severity Reaction Status Date / Time No Known Drug Allergies Allergy Verified 06/01/23 09:46 Medications Home Medications Medication Instructions Recorded Confirmed Last Taken calcium 600 mg capsule 600 mg PO BID 12/20/21 06/01/23 12/23/21 14:00 ferrous sulfate 325 mg (65 mg 325 mg PO QAM 04/28/23 06/01/23 Unknown iron) tablet (Feosol) krill 1,000 mg-omega-3 170 mg-dha 1 cap PO BID 04/28/23 06/01/23 Unknown 50 mg-epa 80 af-lloorh-memtj capsule (krill oil) prednisone 5 mg tablet 5 mg PO .COMPLEX #90 tabs 04/28/23 06/01/23 Unknown methotrexate sodium 2.5 mg tablet 15 mg (6 x 2.5 mg) PO Q7D #24 tabs 05/22/23 06/01/23 Unknown folic acid 1 mg tablet 1 mg PO QAM 06/01/23 06/01/23 Unknown Past Medical History Medical History Epistaxis hx multiple episodes. hx cauterization. Rheumatoid arthritis Snoring No witnessed apnea. No hx of sleep study Nausea and vomiting after administration of anesthetic agent History of COVID-19 06/2021- VERY MILD, COLD SYMPTOMS- NO HOSPITALIZATION, NO CURRENT ISSUES Osteoarthritis Past Family History Family History Sister Hypertension Heart disease Mother Hypertension Past Surgical History Surgical History History of right hip replacement 12/2021 [facility] History of nasal cauterization S/P colonoscopy Status post right knee replacement 04/2020-[facility] Hx of hysterectomy vaginal History of hand surgery left hand middle finger repair Hx of arthroscopy of right knee Social History Smoking Status: Never smoker Do You Dip or Chew Tobacco: No Hx Alcohol Use: No Alcohol type: wine alcohol intake frequency: holidays/special occasions only Hx Substance Use: Yes (LESS THAN ONCE PER MONTH) substance use type: marijuana Testing Electrocardiogram Date: 05/17/23 Findings: + NSR @
[2023-06-08] MEDS ORDERED: LR 500ML BOLUS, THEN 15ML/HR IV SCH (06:00)
[2023-06-08] MEDS ORDERED: traMADol HCL 50 MG TABLET PO SCH (06:00)
[2023-06-08] MEDS ORDERED: TRANEXAMIC ACID 1,000 MG **IV Pre-op IV SCH (06:00)
[2023-06-08] MEDS ORDERED: FAMOTIDINE 20 MG TAB PO SCH (06:00)
[2023-06-08] MEDS ORDERED: Scopolamine 1 MG TDSY TD SCH (06:00)
[2023-06-08] MEDS ORDERED: CeleBREX 200 MG CAP PO SCH ×2 (06:00→21:00)
[2023-06-08] MEDS ORDERED: ROPIVACAINE 0.5% HCL/PF 150 MG, BUPIVACAINE 0.75% MPF 20 ML, EPINEPHrine 0.15 MG, Ketor... INFIL SCH (06:00)
[2023-06-08] MEDS ORDERED: LR 60ML/HR IV SCH (06:00)
[2023-06-08] MEDS ORDERED: ceFAZolin 2000MG 2,000 MG/15 ML SYR IV SCH (06:00)
[2023-06-08] MEDS ORDERED: TRANEXAMIC ACID 1,000 MG **IV Intra-op IV SCH (06:00)
[2023-06-08] MEDS ORDERED: ACETAMINOPHEN 500 MG TAB PO SCH (06:00)
[2023-06-08] MEDS ORDERED: dexAMETHasone 4 MG TAB PO SCH (06:00)
[2023-06-08 06:16] LABS: Partial Thromboplastin Time 28 Seconds (21-31); Prothrombin Time 10.6 Seconds (9.0-12.0)
[2023-06-08] MEDS ORDERED: BUPIVACAINE 0.5 % 5 MG/1 ML PF 10ML VIAL ONE (06:26)
[2023-06-08] MEDS ORDERED: ORTHO JOINT ANESTHETIC ONE (06:35)
--- NOTE | 2023-06-08 06:38 | History & Physical Bridge Note ---
Date of Service June 08, 2023 History & Physical Bridge Note I have examined the patient, reviewed the History & Physical and in the interval since the performance of the History & Physical I have noted the following changes of clinical significance: no changes noted
[2023-06-08] MEDS ORDERED: MIDAZOLAM HCL 1 MG/ML 2ML VIAL ONE (06:39)
[2023-06-08] MEDS ORDERED: fentaNYL citrate PF 100 MCG/2 ML VIAL ONE (06:39)
[2023-06-08] MEDS ORDERED: LIDOCAINE 2% 2 ML VIAL/AMP(20MG/ML) INFIL ONE (07:21)
[2023-06-08] MEDS ORDERED: ONDANSETRON INJ 2 MG/ML 2 ML VIAL ONE (07:21)
[2023-06-08] MEDS ORDERED: PROPOFOL IV EMULSION 10 MG/ML 20 ML VIAL IV ONE ×2 (07:21→08:22)
[2023-06-08] MEDS ORDERED: ePHEDrine sulfate 50 MG/ML AMP IV PRN (08:04)
[2023-06-08] MEDS ORDERED: ONDANSETRON INJ 2 MG/ML 2 ML VIAL IV PRN ×2 (08:04→08:41)
[2023-06-08] MEDS ORDERED: HYDROmorphone INJ 2 MG/ML SYR/VIAL IV PRN (08:04)
[2023-06-08] MEDS ORDERED: fentaNYL citrate PF 100 MCG/2 ML VIAL IV PRN (08:04)
[2023-06-08] MEDS ORDERED: PROMETHAZINE HCL 12.5 MG in SODIUM CHLORIDE 0.9% 50 ML IV PRN (08:04)
[2023-06-08] MEDS ORDERED: ATROPINE SULFATE 0.1 MG/ML 10ML SYR IV PRN (08:04)
--- NOTE | 2023-06-08 08:36 | Operative Report ---
Post Operative Report Pre & Post Diagnosis Operation Date: 06/08/23 07:00 Pre-Op Diagnosis: Left Hip Osteoarthritis Post-Op Diagnosis: Left Hip Osteoarthritis I identified the patient and participated in the time-out.: Yes Procedure Operation Date: 06/08/23 07:00 Actual Procedures p Left Total Hip Arthroplasty, Uncemented(Left) - Jordi Rogers MD Surgeon Jordi Rogers MD Family And Consumer Science Professor ROMY Lopez PA-C. No resident or fellow was available to assist. Estimated Blood Loss 100 Findings Consistent with Post-Op Diagnosis Fluids 1000 cc crystalloid Specimens Left femoral head Anesthesia Type Spinal MAC Complications none Disposition Disposition: Recovery Room Indications 67-year-old female with left hip arthritis refractory to conservative management. X-rays demonstrate jojw-zg-adom disease with marginal osteophytes and subchondral sclerosis. I had a long discussion with her about the risk and benefits of surgery, alternatives to surgery, and expected outcomes. After revi armstrong all these she elected to proceed with surgery. All questions were answered. Informed consent was signed. Description of Procedure Patient was identified in the preoperative holding area where the surgical site, left hip, was marked. A spinal anesthetic was placed, then the patient was brought back to the main operating room, placed in the operating table and moved into the lateral decubitus position. Axillary roll was placed. All bony prominences were padded. Perioperative antibiotics and tranexamic acid 1 gram IV were administered. The operative extremity was prepped and draped in the normal sterile fashion. Prior to incision a multidisciplinary timeout was called. All in the room were in agreement. We began by making an incision for a posterior approach to the hip. We dissected down through subcutaneous tissues to the level of the fascia. The fascia was incised in line with the incision. Charnley bow was placed. Fatty tissue was reflected posteriorly off the back of the greater trochanter to expose the piriformis and short external rotators of the hip. Quadratus femoris was taken off the femur subperiosteally. The piriformis and short external rotators were dissected off the posterior aspect of the hip. A box cut was made in the capsule. Inferior hip capsule was released off the femur. The femoral head was dislocated. The femoral neck cut was made at our preoperative template. The acetabulum was then exposed. The labrum was sharply excised. Contents of the cotyloid fossa were removed with electrocautery. We then began reaming at a size 8 mm less than our preoperative template. We reamed up by [address] the way up to a size 54 mm cup. This gave us good bleeding cancellus bone circumferentially. The acetabulum was then irrigated out and dried. The real Friedens Gription cup was then impacted down into position with 45 degrees of lateral opening and 25 degrees of anteversion. A single cancellous bone screw was placed up into the ilium. Excellent fixation was obtained. A trial liner for a 36 mm femoral head was then placed. Next we turned our attention to the femur. The lateral neck was removed with a box osteotome. Intramedullary guide was used to establish the intramedullary canal. We then broached all the way up to a size 5. We began trialing with a standard offset neck and a +5 head. Hip was reduced. Leg length was a millimeter or 2 short. Therefore, the hip was redislocated and we switched her for a +8.5 head. Hip was reduced. Now the leg lengths were symmetric. The hip was stable in extension and external rotation, and stable in the sleeper position. At 90 degrees of hip flexion the hip could be internally rotated 55 degrees before levering out of the cup. I was very happy with the stability exam. Therefore the hip was dislocated and the femoral trial was removed. The acetabulum was re-exposed, and the trial liner was removed. [place] hole eliminator screw was placed. An Altrx polyethylene liner for a 36 mm femoral head was then impacted into the shell. The locking mechanism was checked to ensure that it had engaged which it had. The femur was re-exposed. The femoral canal was irrigated and dried. The real size 5 standard offset Actis femoral stem was opened up. This was impacted down into position. The 36 mm ceramic femoral head with +8.5 mm offset was opened up and gently impacted down onto the trunnion. The hip was atraumatically reduced. Another 1 gram of IV tranexamic acid was started prior to closure. The wound was irrigated out with sterile Betadine solution. The periarticular injection cocktail was then placed. The short external rotators, piriformis, and posterior capsule were repaired through drill holes in the greater trochanter using #2 Vicryl. The fascia was run with a looped #1 PDS. The subcutaneous layer was closed with #1 PDS. The dermal layer was closed with 2-0 Vicryl. Zip line was used for the skin followed by a Silverlon dressing. A compressive dressing was then placed. The patient was then rolled supine. Leg lengths were rechecked and were symmetric. An abduction pillow was placed. Sedation was lifted and the patient was transferred to the recovery room in stable condition. Summary of implants: Depuy Friedens Gription Acetabular Shell Sector Cup, 54 mm outer diameter Friedens Cancellous bone screw, 6.5 x 40 mm [place] hole eliminator Friedens Altrx Polyethylene Acetabular Liner, Neutral, with a 36 mm inner diameter DePuy Actis collared cementless Femoral stem, 12/14 taper, size 5 standard offset 36 mm ceramic femoral head with +5 offset Postoperative course: Patient will be admitted overnight from the recovery room. Patient will be weightbearing as tolerated with posterior hip precautions. Aspirin for DVT prophylaxis I attest to the content of the Intraoperative Record and any orders documented therein. Any exceptions are noted below.
--- NOTE | 2023-06-08 08:40 | Operative Report ---
Post Operative Report Pre & Post Diagnosis Operation Date: 06/08/23 07:00 Pre-Op Diagnosis: Left Hip Osteoarthritis Post-Op Diagnosis: Left Hip Osteoarthritis I identified the patient and participated in the time-out.: Yes Procedure Operation Date: 06/08/23 07:00 Actual Procedures p Left Total Hip Arthroplasty, Uncemented(Left) - Jordi Rogers MD Surgeon Jordi Rogers MD Stock Checkerer ROMY Lopez PA-C. No resident or fellow was available to assist. Estimated Blood Loss 100 Findings Consistent with Post-Op Diagnosis Specimens femoral head Description of Procedure I was present during the entire procedure assisting with positioning, prepping, draping, wound retraction, wound closure, dressing and abduction pillow placement. No fellow present. Please see Dr. Rogers procedure note for specifics of the case. I attest to the content of the Intraoperative Record and any orders documented therein. Any exceptions are noted below.
[2023-06-08] MEDS ORDERED: diphenhydrAMINE 50 MG/ML VIAL IV PRN (08:41)
[2023-06-08] MEDS ORDERED: ALUMINUM/MAGNESIUM SUSP 30 ML UDC PO PRN (08:41)
[2023-06-08] MEDS ORDERED: MAGNESIUM HYDROXIDE SUSP 30 ML UDC PO PRN (08:41)
[2023-06-08] MEDS ORDERED: oxyCODONE HCL IR 5 MG TAB (IMMEDIATE RELEASE) PO PRN (08:41)
[2023-06-08] MEDS ORDERED: NALOXONE HCL 0.4 MG/1 ML VIAL/CARP IV PRN (08:41)
[2023-06-08] MEDS ORDERED: HYDROmorphone INJ 0.5 MG/0.5 ML SYR IV PRN (08:41)
[2023-06-08] MEDS ORDERED: bisacodyL 10 MG SUPP PR PRN (08:41)
[2023-06-08] MEDS ORDERED: METOCLOPRAMIDE HCL INJ 5 MG/ML 2 ML VIAL IV PRN (08:41)
[2023-06-08] MEDS ORDERED: ePHEDrine sulfate 50 MG/5 ML SYR ONE (09:29)
--- NOTE | 2023-06-08 09:59 | XRay Report ---
XR pelvis 1-2V routine HISTORY: 67 years-old Female In PACU - Post Surgical left hip arthroplasty COMPARISON: Pelvis radiograph 05/16/2023 TECHNIQUE: AP view of the pelvis FINDINGS: Bilateral arthroplasties appear unremarkable. Expected postoperative soft tissue swelling the deep ti ssue air lateral to the left hip. No opaque foreign body or acute fracture. No dislocation. IMPRESSION: Unremarkable appearance of the left hip total joint arthroplasty. ACT 112: Negative or not required by law. The above report was generated using voice recognition software. It may contain grammatical, syntax o r spelling errors. Electronically signed by: Fede Cisneros M.D. 06/08/2023 9:57 AM
--- NOTE | 2023-06-08 10:25 | Anesthesiology Progress Note ---
Date of Service June 08, 2023 Anesthesia Post Procedure Vital Signs Vital Signs: Temp Pulse Pulse Resp BP BP Pulse Ox 06/08/23 10:05 79 15 126/74 97 06/08/23 09:50 75 23 119/75 98 06/08/23 09:35 76 19 114/71 98 06/08/23 09:20 36.3 C L 73 16 117/72 98 06/08/23 09:10 71 16 112/63 95 06/08/23 09:00 76 21 110/72 93 06/08/23 08:50 75 15 114/72 93 06/08/23 08:40 36.4 C L 86 16 127/69 97 06/08/23 05:33 36.8 C 74 18 147/91 H 98 O2 Del Method 06/08/23 10:05 Room Air 06/08/23 09:50 Room Air 06/08/23 09:35 Room Air 06/08/23 09:20 Room Air 06/08/23 09:10 Room Air 06/08/23 09:00 Room Air 06/08/23 08:50 Room Air 06/08/23 08:40 Room Air 06/08/23 05:33 Room Air Transfer of Care Handoff Completed per policy Notes Mental Status: alert / awake / arousable and participated in evaluation Nausea / Vomiting: adequately controlled Pain: adequately controlled Airway Patency, RR, SpO2: stable & adequate BP & HR: stable & adequate Hydration State: stable & adequate Neuraxial Anesthesia: was administered and sensory block is resolving Anesthetic Complications: no major complications apparent and Pt Satisfied with anesthetic care
--- OUTSIDE RECORDS SUMMARY | 2023-06-08 11:44 | External Medical Summary | Continuity of Care Document ---
Author Name Unknown Organization [facility] [id number] [place] [id number] Care Team Providers Care Real Estate Sales Agent Name Role Phone Raoul Stahl Primary Care Physician [phone] Encounter [facility] [id number] Date(s): 06/02/23 - 06/02/23 [facility] [address] [facility] [address] [facility] [address] [facility], [address] [place] [address] [phone] Encounter Diagnosis Encounter for pre-operative examination(Discharge Diagnosis) - 06/02/23 Primary osteoarthritis of left hip(Discharge Diagnosis) - 06/02/23 Discharge Disposition: Home or Self Care Attending Physician: REY Overton Kimberly A Allergies, Adverse Reactions, Alerts No Known Allergies Assessment and Plan Extracted from: Title:Preoperative clearance -Dr. Rogers Author:REY Overton Kimberly A Date:06/02/23 1.Encounter for pre-operat maynor examination Patient is a 67 yo female who presents today for preoperative evaluation. She is scheduled with Dr. Rogers on 06/08/23 at [facility] for a (L) CECILIO. She has end stage OA and avascular necrosis. She has failed conservative treatments including PT, NSAIDS, and injection therapy. She did have a right CECILIO in 2021 without complications. She has already seen ortho and anesthesia for preoperative evaluation. EKG and labs completed and reviewed by anesthesia. She has also recently been diagnosed with RA by rheumatology after abnormal labs. Was just started on Methotrexate 6 tablets weekly. She remains essentially asymptomatic. Given patient's current state of health and stable comorbid conditions, she is medically optimized for the scheduled left CECILIO 2.Primary osteoarthritis of left hip See #1 Immunizations Given and Recorded Vaccine Date Status Refusal Reason RSV vaccine preF3, recombinant 05/16/23 Recorded pneumococcal 20-valent conjugate vaccine 11/23/22 Given SARS-CoV-2 mRNA-1273 (6y+ bivalent) 05/06/22 Recor ded zoster vaccine, inactivated 1 02/03/21 Given zoster vaccine, inactivated 2 11/04/20 Given pneumococcal 23-valent vaccine 11/04/20 Given influenza virus vaccine, inactivated 03/27/19 Jonah rded influenza virus vaccine, inactivated 05/04/17 Give n influenza virus vaccine, inactivated 04/19/16 Jonah rded influenza virus vaccine, inactivated 01/30/15 Jonah rded influenza virus vaccine, inactivated 06/26/13 Jonah rded influenza virus vaccine, inactivated 3 04/23/13 Gi jose zoster vaccine live 05/25/16 Given tetanus/diphtheria/pertuss, acel (Tdap) 05/30/13 G iven 1Result Comment: Lot# [id number] Ex: 08/05/2022 2Result Comment: Adjuvant Solution Lot # [id number] 03/25/2022 3Early/Late Reason: Other : Medications Feosol 200 mg (65 mg elemental iron) oral tablet Start: 05/10/23 8:05:00 EST, every other day Start Date: 05/10/23 Status: Ordered folic acid 1 mg oral tablet Start: 05/10/23 8:05:00 EST, 1 tab, PO, Daily Start Date: 05/10/23 Status: Ordered methotrexate 2.5 mg oral tablet TAKE 4 TABLET BY MOUTH EVERY 7 DAYS Start Date: 05/10/23 Status: Ordered predniSONE 5 mg oral tablet 2 tab, TAKE 2 TABLETS BY MOUTH EVERY DAY DIRECTED Start Date: 05/10/23 Status: Ordered Víctor Antartic Krill Oil Start: 02/28/23 15:45:00 EDT Start Date: 02/28/23 Status: Ordered Super Calcium 600 + D3 400 Start: 10/16/20 12:04:00 EDT, Note to Pharmacy: 2 tablets daily; Start Date: 10/16/20 Status: Ordered Mental Status 06/02/23 Barriers to Learning one year Acuity of illness Mandatory Health Literacy Documentation Yes Health Literacy Communication Barriers N ever Primary Language Slovenian Problem List Condition Confirmation Course Effective Dates Status H ealth Status Informant Arthritis of right hip Confirmed Active 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 Confirmed Active Diarrhea Confirmed Active Finger pain, left 1 Confirmed Active Hip pain Confirmed Active Status post right knee replacement Confirmed Active Impingement syndrome of right shoulder Confirmed Active Knee pain, right 2 Confirmed Active Primary osteoarthritis of left hip Confirmed Active Left knee DJD Confirmed Active Right knee DJD Confirmed Active Left knee pain Confirmed Active Leg weakness, bilateral Confirmed Active Encounter for pre-operative examination Confirmed Active Tenosynovitis of finger Confirmed Active Vitamin D deficiency Confirmed Active Ambulatory dysfunction Confirmed Active 1long finger. 2+lateral meniscus tear Diagnosis Diagnosis Type Effective Dates Health Status Clinical Service Informant Encounter for pre-operative examination Discharge Diagnosis 06/02/23 Primary osteoarthritis of left hip Discharge Diagnosis 06/02/23 Procedures Procedure Date Related Diagnosis Body Site Status Colonoscopy 1, 2 04/06/22 Complete d TOTAL HIP ARTHROPLASTY 3 01/06/22 Completed Plain X-ray of left hand 4 06/25/21 Completed Mammogram 5 03/26/21 Completed History of arthroplasty of right knee 05/05/20 Completed Chest X-ray 6 04/09/20 Completed EKG finding 7 04/09/20 Completed Mammogram - screening 8 03/25/19 C ompleted Mammogram - screening 9 03/23/18 C ompleted Colonoscopy 10, 11 09/27/16 Comple polina Diagnostic colonoscopy 09/27/16 Co mpleted Mammogram 12 09/13/16 Completed Mammogram 13, 14, 15 03/16/16 Comp leted Ultrasound, breast, unilater al, real time with image documentation, including axilla when performed; limited 16 03/08/16 Completed Mammogram - screening 17 03/03/16 Completed Mammogram - screening 18 02/26/15 Completed Bone density scan 08/21/14 Complet ed Mammogram 19 02/11/14 Completed Forehead 20 Completed fx L. middle finger repair 21 Completed Hysterectomy 22 Completed left long finger ORIF 23 Completed Meniscus 24 Completed 1Repeat Colonoscopy 5 years. 2COLO to cecum, diveticulosis, rectal eythema bx, repeat 5 yaears. 3Right Total Hip Arthroplasty--Uncemented 4IMPRESSION: 1. Soft tissue swelling within the left index finger. No acute fractures. 2. Old posttraumatic changes as described above. 3. Scapholunate dissociation. 5Impression: There is no mammographic evidence of malignancy 6impression: 1. no acute disease in the chest 2. suspect emphysema 7normal sinus rhythm normal ECG 8IMPRESSION: No mammographic evidence of malignancy. 1 year screening is recommended 9IMPRESSION: No mammographic evidence of malignancy. A 1 year screening mammo is recommended 10One 2 mm polyp in the rectum, removed with a cold biopsy forcepts. Resected and retrieved. Two 7 mm polyps in the ascending colon, removed with a hot snare. Resected and retrieved. The examined portion of the ileum was normal. Resume regular diet Continue present medications Await pathology results. Repeat Colonoscopy for surveillance based on pathology results. 11pathology: A: Ascending colon polyps, multiple biopsies: Frgments of sessile serrated polyp. Comment: There is no evidence of malignancy. sessile serrated polyps can be seen in hyperplastic (serrated) polyposis syndrome. B: Rectal polyp, bx: Hyperplastic polyp. 12The focal architectural distortion in the 3:00 left breast has not significantly changed compared to the prior exam and also appears stable on the 2-D mammographic views datin back to 2011. With approximately 5 years of stability this is most likely benign. However, pathology results did not confir m the suspected radical scar and were considered disordant. The patient consulted with Dr. Sneed, general surgery and they opted to follow this lesion as opposed to surgical excisional biopsy at this time. Overall, I still recommend surgical excision but if the patient wishes close follow up that seems reasonable given the length of mammographic stability and we will continue to follow closely. The patient is due for annual bilateral mammographiy in 6 months and she scheduled that follow-up appointment prior to leaving the department. 13Pathology: From the US guided vaccum-assisted core needle biopsy of a subtle area of architectural distortion in the 3:00 left breast yielded adenosis. Negative for DCIS and invasive carcinoma. Giventhat the mammographic appearance represented focal architectural distortion this is considered discordant and surgical consultation for surgical excision of the lesion is recommended. The results andrecommendations were discussed with the patient at 11:20am on 03/18/16. 14Amended report; An asymmetry with possible architecture distoertion in the left breast is indeterminate. There is no evidence of malignancy within the right breast. 15s/p US guided core needle biopsy of a focal area of architectural distortion in the 3:00 left breast, with bx marker placed at the site. 16Ultrasound guided core needle biopsy is recommended for an ill-defined area of architectural distortion in the 3:00 left breast, 4 cm from the nipple correlating with mammographic distortion. Differential considerations include radial scar and carcinoma. 17Impression: An asymmetry with possible architectural distortion in the left breast is indeterminate. There is no evidence of malignancy within the right breast. The patien will be called to schedule an appt. 18Impression: There is no mammographic evidence of malignancy. A 1 year screening mammogram is recommended. The patient will receive written notification of the results. 19Normal 20mole removed [id number], took 1 ovary . 24Right knee-Repair 05/2012 Vital Signs Most recent to oldest [Reference Range]: 1 Height 170.2 cm (06/02/23 7:11 AM) Patient Weight 89.4 kg (06/02/23 7:11 AM) Body Mass Index 30.86 kg/m2 (06/02/23 7:11 AM) Temperature [36.5-37.9 DegC] 37.0 DegC (06/02/23 7:11 AM) Heart Rate 75 bpm (06/02/23 7:11 AM) Respiratory Rate 18 br/min (06/02/23 7:11 AM) Blood Pressure 118/80mmHg (06/02/23 7:11 AM) Cuff Pulse Pressure 38 mmHg (06/02/23 7:11 AM) Social History Social History Type Response Smoking Status Never smoked cigaret chandrika Sex Female FCM Outpt Note * REY Overton, Siri Fagan: PERFORM Event Display: FCM Outpt Note Authored Date: [id number] Chief Complaint Pre-Op for left hip replacement on 06/08/23 History of Present Illness PRE-OPERATIVE EVALUTION Patient is a 67 yo female who presents today for preoperative evaluation. She is scheduled with Dr. Rogers on 06/08/23 at [facility] for a (L) CECILIO. She has end stage OA and avascular necrosis. She has failed conservative treatments including PT, NSAIDS, and injection therapy. She did have a right CECILIO in 2021 without complications. She has also recently been diagnosed with RA by rheumatology after abnormal labs. Was just started on Methotrexate 6 tablets weekly. She remains essentially asymptomatic. ROS completed in detail with pertinent findings noted above. Requested by:Dr. Rogers Planned surgery: (L) total hip arthroplasty [X]Intermediate risk(intraperitoneal, intrathoracic, CEA, head/ neck, ortho, urologic, prostate) Exercise tolerance: 7-9 METS [Vigorous]:hiking hills; jogging; basketball; walking up stairs; tennis; jumping jacks Bleeding tendency:Denies h/o bleeding disorders or blood clots Substance use:None Prior anesthesia:History of marked nausea with generalized anesthesia. Revised Cardiac Risk Index: Score=0 or 1 [0] Higher Risk Surgery (intraperitoneal, intrathoracic, supra-inguinal vascular) [0] Ischemic Heart Disease [0] History of CHF [0] History of cerebrovascular disease [0] Insulin therapy for DM [0] Pre-op Cr >2 Total Score=0 Review of Systems ROS per HPI Physical Exam Vitals & Measurements T:37.0C HR:75(Monitored) RR:18 BP:118/80 SpO2:95% HT:170.2cm WT:89.400kg(Dosing) WT:89.4kg BMI:30.86 PHQ2 Data(Data Documented on:06/02/2023 07:10) Emotional health assessment NEGATIVE General: Alert and oriented,No acute distress,Very pleasant Well groomed Eye: Pupils are equal, round and reactive to light,Extraocular movements are intact,Normal conjunctiva. HENT: Normocephalic, Neck: Supple,No lymphadenopathy. Respiratory: Lungs are clear to auscultation,Respirations are non- labored,Breath sounds are equal,Symmetrical chest wall expansion. Cardiovascular: Normal rate,Regular rhythm,No murmur,No gallop,No edema. Abdomen: Normoactive BS x 4. No R/G/R. No organomegaly. Soft, nontender, nondistended Lymphatics: No submandibular, anterior or posterior cervical adenopathy palpable. Musculoskeletal:Mild functional arthritic changeswith noobvious rheumatoid nodules. Ataxic gait Integumentary: Warm,[place]. No rashes or changing lesions. Neurologic: Alert,Oriented,Cranial Nerves II-XII are grossly intact. Cognition and Speech: Oriented,Speech clear and coherent,Functional cognition intact. Psychiatric: Cooperative,Appropriate mood & affect,Normal judgment. Assessment/Plan 1.Encounter for pre-operative examination Patient is a 67 yo female who presents today for preoperative evaluation. She is scheduled with Dr. Rogers on 06/08/23 at [facility] for a (L) CECILIO. She has end stage OA and avascular necrosis. She has failed conservative treatments including PT, NSAIDS, and injection therapy. She did have a right CECILIO in 2021 without complications. She has already seen ortho and anesthesia for preoperative evaluation. EKG and labs completed andreviewed by anesthesia. She has also recently been diagnosed with RA by rheumatology after abnormal labs. Was just started on Methotrexate 6 tablets weekly. She remains essentially asymptomatic. 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 Status post right knee replacement Tailor's bunion of both feet Tenosynovitis of finger Vitamin D deficiency Historical Left shoulder pain ROUTINE GENERAL MEDICAL EXAMINATION AT A HEALTH CARE FACILITY Weight disorder Wrist pain Procedure/Surgical History Colonoscopy (04/06/2022)TOTAL HIP ARTHROPLASTY (01/06/2022)Plain X-ray of left hand (06/25/2021)Mammogram (03/26/2021)History of arthroplasty of right knee (05/05/2020)EKG finding (04/09/2020)Chest X-ray (04/09/2020)Mammogram - screening (03/25/2019)Mammogram - screening ( 03/23/2018)Colonoscopy (09/27/2016)Diagnostic colonoscopy (09/27/2016)Mammogram (09/13/2016)Mammogram (03/16/2016)Ultrasound, breast, unilateral, real time with image documentation, including axilla when performed; limited (03/08/2016)Mammogram - screening (03/03/2016)Mammogram - screening (02/26/2015)Bone density scan (08/21/2014)Mammogram (02/11/2014)left long finger ORIFfx L. middle finger repairMeniscusHysterectomyForehead Medications calcium-vitamin D(Super Calcium 600 + D3 400) ferrous sulfate(Feosol 200 mg (65 mg elemental iron) oral tablet) folic acid(folic acid 1 mg oral tablet), 1 mg= 1 tab, PO, Daily methotrexate(methotrexate 2.5 mg oral tablet) omega-3 polyunsaturated fatty acids(Víctor Antartic Krill Oil) predniSONE(predniSONE 5 mg oral tablet), 10 mg= 2 tab Allergies NKA Social History Smoking Status Never smoked cigarettes Family History Diabetes: Father. Glaucoma: Father. Heart disease: Sister. Hypertension: Mother and Sister. Type II diabetes mellitus: Father. Health Status Family Member(s) Immunizations Vaccine Date Status RSV vaccine preF3, recombinant 05/16/2023 Recorded pneumococcal 20-valent conjugate vaccine 11/23/2022 Given SARS-CoV-2 mRNA-1273 (6y+ bivalent) 05/06/2022 Recorded zoster vaccine, inactivated 02/03/2021 Given Comments : Lot# [id number] Ex: 08/05/2022 pneumococcal 23-valent vaccine 11/04/2020 Given zoster vaccine, inactivated 11/04/2020 Given Comments : Adjuvant Solution Lot # [id number] 03/25/2022 influenza virus vaccine, inactivated 03/27/2019 Recorded influenza virus vaccine, inactivated 05/04/2017 Given zoster vaccine live 05/25/2016 Given influenza virus vaccine, inactivated 04/19/2016 Recorded influenza virus vaccine, inactivated 01/30/2015 Recorded influenza virus vaccine, inactivated 2013 Recorded tetanus/diphtheria/pertuss, acel (Tdap) 05/30/2013 Given influenza virus vaccine, inactivated 04/23/2013 Given Comments : Other : Recommendations Health Maintenance Pending(in the next year) OverDue Adult Influenza Vaccine due12/24/22and every 1year Due Adult COVID-19 Vaccination due06/02/23Unknown Frequency Adult Tdap/Td Vaccine due06/02/23Unknown Frequency Falls Plan of Care due06/02/23Unknown Frequency Hepatitis C Screening due06/02/23One-time only Medicare Annual Wellness Visit due06/02/23and every 1year Satisfied(in the past 1 year) Satisfied Body Mass Index on06/02/23.Satisfied by CHANDRA Rosario Stacey Breast Cancer Screening on04/04/23.Satisfied by SUDARSHAN Mari Lynnae Electronic Signature on File Electronically Reviewed/Signed by: Siri Overton PA-C Author Signature Dt/Tm:06/02/2023 07:52 AM Department of Family Medicine Electronically Reviewed/Signed by: Santino Rose MD Cosigner Signature Dt/Tm: 06/02/2023 12:43 PM Department of Family Medicine [facility] Patient Care team information Care Team Personnel Name: DO Stahl Eric Position: Resident Member Role: Primary Care Provider Address: Address: [address] Name: MD Castellon Claudia J Position: Physician - Radiologist Member Role: Lifetime Relationship Address: Address: [address] [place] [id number] Care Team Related Persons Name: MAICO ZHENG Address: home [address] [place] [phone]
[2023-06-08] MEDS ORDERED: KETOROLAC TROMETHAMINE 15 MG/ML VIAL IV SCH (12:00)
[2023-06-08] MEDS: predniSONE 5 MG TAB PO SCH (13:01)
[2023-06-08] MEDS: DOCUSATE SODIUM 100 MG CAP PO SCH ×2 (13:20→19:38)
[2023-06-08] MEDS: FOLIC ACID 1 MG TAB PO SCH (13:21)
[2023-06-08] MEDS: FERROUS SULFATE 325 MG TAB PO SCH (13:21)
[2023-06-08] MEDS: ACETAMINOPHEN 500 MG TAB PO SCH ×2 (13:21→21:36)
[2023-06-08] MEDS: CALCIUM 600MG + VIT D 400 IU TAB PO SCH ×2 (13:21→19:38)
[2023-06-08] MEDS: MULTIVITAMIN TAB PO SCH (13:22)
[2023-06-08] MEDS: SODIUM CHLORIDE 0.9% 1,000 ML IV SCH ×2 (13:23→23:15)
[2023-06-08] MEDS: Scopolamine CHECK PATCH PLACEMENT SCH ×2 (14:36→23:15)
[2023-06-08] MEDS: ceFAZolin 2000MG 2,000 MG/15 ML SYR IV SCH ×2 (14:36→23:15)
[2023-06-08] MEDS ORDERED: TRANEXAMIC ACID / 0.7% NACL 1,000 MG/100 ML BAG IV SCH (14:45)
[2023-06-08] MEDS ORDERED: SENNA 8.6 MG TAB PO SCH (21:00)
[2023-06-09] MEDS: ACETAMINOPHEN 500 MG TAB PO SCH (05:53)
[2023-06-09] MEDS: SODIUM CHLORIDE 0.9% 1,000 ML IV SCH (06:03)
[2023-06-09 07:27] LABS: Basophils # (auto) 0.03 K/uL (0.00-0.20); Basophils % (auto) 0.3 %; Eosinophils # (auto) 0.01 K/uL (0.00-0.50); Eosinophils % (auto) 0.1 %; Hematocrit (blood only) 32.1 % (37.0-47.0); Hemoglobin 10.2 g/dl (12.0-16.0); Immature Granulocytes # (auto) 0.04 K/uL (0.01-0.20); Immature Granulocytes % (auto) 0.4 %; Lymphocytes # (auto) 1.41 K/uL (1.20-3.40); Lymphocytes % (auto) 14.9 %; Mean Corpuscular Hemoglobin 27.9 pg (25.0-34.0); Mean Corpuscular Hgb Conc 31.8 g/dL (32.0-36.0); Mean Corpuscular Volume 87.9 fL (80.0-100.0); Mean Platelet Volume 10.7 fL (9.4-12.4); Monocytes # (auto) 0.93 K/uL (0.11-0.59); Monocytes % (auto) 9.8 %; Neutrophils # (auto) 7.04 K/uL (1.40-6.50); Neutrophils % (auto) 74.5 %; Platelet Count 204 K/uL (130-400); RDW Coefficient of Variation 17.9 % (11.5-14.5); RDW Standard Deviation 56.8 fL (36.4-46.3); Red Blood Count 3.65 M/uL (4.20-5.40); White Blood Count 9.46 K/ul (4.8-10.8)
[2023-06-09 07:56] LABS: BUN Creatinine Ratio 16.5 (10-20); Calcium 9.5 mg/dl (8.6-10.3); Creatinine Clr Calc Pharmacy 73.2 ml/min; Est GFR (African American) 82.2 ml/min; Est GFR (Non-African American) 70.9 ml/min; Potassium 4.6 mmol/L (3.5-5.1)
[2023-06-09] MEDS ORDERED: dexAMETHasone 4 MG TAB PO SCH (08:00)
[2023-06-09] MEDS: MULTIVITAMIN TAB PO SCH (08:13)
[2023-06-09] MEDS: predniSONE 5 MG TAB PO SCH (08:13)
[2023-06-09] MEDS: FOLIC ACID 1 MG TAB PO SCH (08:13)
[2023-06-09] MEDS: FERROUS SULFATE 325 MG TAB PO SCH (08:14)
[2023-06-09] MEDS: CALCIUM 600MG + VIT D 400 IU TAB PO SCH (08:14)
[2023-06-09] MEDS: DOCUSATE SODIUM 100 MG CAP PO SCH (08:27)
[2023-06-09] MEDS: Scopolamine CHECK PATCH PLACEMENT SCH (08:27)
[2023-06-09] MEDS ORDERED: ASPIRIN 81 MG ECTAB PO SCH (09:00)
--- NOTE | 2023-06-09 09:32 | Orthopedic Progress Note ---
Date of Service June 09, 2023 Assessment & Plan (1) S/P total left hip arthroplasty: Plan: Total hip precautions were reviewed PT/OT Weightbearing as tolerated with walker assistance Keep Silverlon dressing in place Ice with easy wrap DVT prophylaxis with aspirin and DAWOOD stockings Abduction pillow use x 6 weeks Pain control with p.o. medication Plan is to discharge home later this morning with in-home physical therapy for the first 2 weeks Follow-up at [facility] orthopedics as previously scheduled. With questions contact our clinic at [phone] Admission and Anticipated Discharge Date Admission Date: June 08, 2023 Subjective This 67-year-old female who is day 1 status post left total hip arthroplasty. Patient is doing very well. She states her pain is well-controlled with the p.o. pain medication. She does have some twinging type pain when she ambulated from her bed to the restroom earlier this morning but states that as long as she does not move too quickly the pain resolves. Currently she denies chest pain, shortness of breath, fever, chills, sweats or numbness or tingling in the left lower extremity. She also denies nausea, vomiting diarrhea or difficulty voiding. Patient also states that she is not able to use nonsteroidal agents due to the new rheumatoid arthritis medication she has taken. She states her mission systems engineer recommended using [id number] extra strength Tylenol and what ever analgesic she was prescribed for pain control. He had no problem with her taking aspirin for DVT prophylaxis. Review of Systems Review of Systems: All systems reviewed & are unremarkable except as noted in Subjective Physical Exam Physical Exam: Left hip: Outer dressing was removed. Silverlon is clean dry and intact and left in place. Patient is able to detect light sensation to touch circumferentially around the Silverlon. She is able to perform an active straight leg raise test. She is able to actively dorsi and plantarflex her foot. She tolerates light logroll testing. She has no pain with passive hip flexion near 90 degrees but does experience a slight pulling sensation with light passive internal and external hip rotation. Otherwise she is neurovascularly intact. Her peripheral pulses are 2+. Her capillary refill is less than 2 seconds. Her quad strength is 3+ out of 5. Results & Data Vital Signs (Past 12 Hours) Vital Signs Temp Pulse Pulse Resp BP Pulse Ox O2 Del Method 06/09/23 08:57 36.7 C 64 63 18 112/62 99 06/09/23 07:54 36.7 C 64 18 112/62 99 Room Air 06/09/23 04:20 36.6 C 63 18 101/63 97 Room Air 06/08/23 23:59 36.5 C 60 18 103/62 96 Room Air Diagnostic Findings Laboratory Results WBC 9.46 K/ul (4.8-10.8) 06/09/23 07:01 RBC 3.65 M/uL (4.20-5.40) L 06/09/23 07:01 Hgb 10.2 g/dl (12.0-16.0) L 06/09/23 07:01 Hct 32.1 % (37.0-47.0) L 06/09/23 07:01 MCV 87.9 fL (80.0-100.0) 06/09/23 07:01 MCH 27.9 pg (25.0-34.0) 06/09/23 07:01 MCHC 31.8 g/dL (32.0-36.0) L 06/09/23 07:01 RDW Std Deviation 56.8 fL (36.4-46.3) H 06/09/23 07:01 RDW Coeff of Zonia 17.9 % (11.5-14.5) H 06/09/23 07:01 Plt Count 204 K/uL (130-400) 06/09/23 07:01 MPV 10.7 fL (9.4-12.4) 06/09/23 07:01 Immature Gran % (Auto) 0.4 % 06/09/23 07:01 Neut % (Auto) 74.5 % 06/09/23 07:01 Lymph % (Auto) 14.9 % 06/09/23 07:01 Hooker % (Auto) 9.8 % 06/09/23 07:01 Eos % (Auto) 0.1 % 06/09/23 07:01 Baso % (Auto) 0.3 % 06/09/23 07:01 Neut # (Auto) 7.04 K/uL (1.40-6.50) H 06/09/23 07:01 Lymph # (Auto) 1.41 K/uL (1.20-3.40) 06/09/23 07:01 Hooker # (Auto) 0.93 K/uL (0.11-0.59) H 06/09/23 07:01 Eos # (Auto) 0.01 K/uL (0.00-0.50) 06/09/23 07:01 Baso # (Auto) 0.03 K/uL (0.00-0.20) 06/09/23 07:01 Immature Gran # (Auto) 0.04 K/uL (0.01-0.20) 06/09/23 07:01 PT 10.6 Seconds (9.0-12.0) 06/08/23 05:23 INR 1.0 (0.9-1.1) 06/08/23 05:23 APTT 28 Seconds (21-31) 06/08/23 05: PTT Ratio 1.0 06/08/23 05:23 Sodium 139 mmol/L (136-145) 06/09/23 07:01 Potassium 4.6 mmol/L (3.5-5.1) 06/09/23 07:01 Chloride 108 mmol/L (98-107) H 06/09/23 07:01 Carbon Dioxide 27 mmol/L (21-32) 06/09/23 07:01 Anion Gap 4 (3-11) 06/09/23 07:01 BUN 14 mg/dl (6-23) 06/09/23 07:01 Creatinine 0.85 mg/dl (0.6-1.2) 06/09/23 07:01 Est Cr Clr Drug Dosing 73.2 ml/min 06/09/23 07:01 Est GFR ( Amer) 82.2 ml/min 06/09/23 07:01 Est GFR (Non-Af Amer) 70.9 ml/min 06/09/23 07:01 BUN/Creatinine Ratio 16.5 (10-20) 06/09/23 07:01 Glucose 96 mg/dl (70-99(Fasting)) 06/09/23 07:01 Calcium 9.5 mg/dl (8.6-10.3) 06/09/23 07:01 Blood Type O Positive 06/08/23 05:23 Antibody Screen NEGATIVE 06/08/23 05:23 Impressions Pelvis X-Ray 06/08/23 08:41 XR pelvis 1-2V routine HISTORY: 67 years-old Female In PACU - Post Surgical left hip arthroplasty COMPARISON: Pelvis radiograph 05/16/2023 TECHNIQUE: AP view of the pelvis FINDINGS: Bilateral arthroplasties appear unremarkable. Expected postoperative soft tissue swelling the deep tissue air lateral to the left hip. No opaque foreign body or acute fracture. No dislocation. IMPRESSION: Unremarkable appearance of the left hip total joint arthroplasty. ACT 112: Negative or not required by law. The above report was generated using voice recognition software. It may contain grammatical, syntax or spelling errors. Electronically signed by: Fede Cisneros M.D. 06/08/2023 9:57 AM
--- NOTE | 2023-06-09 09:38 | Discharge Summary ---
Date of Service June 09, 2023 Admission HPI Per Admitting Provider History of Present Illness (including history relevant to procedure): This 67-year-old female presents to the clinic today for her preoperative history and physical examination.. Patient states that back in May 2022 she had an ultrasound-guided corticosteroid injection in the left hip that did help with her pain up until a few months ago. Patient states that she recently saw a feed mill tender Dr. Swain in [facility] and was diagnosed with rheumatoid arthritis. She states she also had a recent appointment with her primary care provider Dr. Stahl. She states that at that visit she had x-rays of her left hip performed showing end-stage arthritis and avascular necrosis. Patient states that she had her right hip replaced by Dr. Rogers last year (January 06, 2022) and has had great results. Patient is electing to proceed with left total hip arthroplasty for her severe arthritis. Review Of Systems: A 12 point review of systems is performed and is unremarkable except for those things stated in the HPI and past medical history. Past Medical History: Problems: Tailor's bunion of both feet Ambulatory dysfunction Leg weakness, bilateral Hip pain Arthritis of right hip Impingement syndrome of right shoulder Tenosynovitis of finger Finger pain, left Left knee DJD Left knee pain Diarrhea Vitamin D deficiency Status post right knee replacement Right knee DJD Primary osteoarthritis of left hip Sclerosing adenosis of left breast Knee pain, right Procedure History Procedure Procedure Date Comments left long finger ORIF - 03/22/12. Forehead - mole removed Hysterectomy - 2006-Vaginal, took 1 ovary Meniscus - Right knee-Repair 05/2012 fx L. middle finger repair - 2011 Colonoscopy 04/06/2022 - Repeat Colonoscopy 5 years. - COLO to cecum, diveticulosis, rectal eythema bx, repeat 5 yaears. TOTAL HIP ARTHROPLASTY 01/06/2022 - Right Total Hip Arthroplasty--Uncemented Plain X-ray of left hand 06/25/2021 - IMPRESSION: 1. Soft tissue swelling within the left index finger. No acute fractures.2. Old posttraumatic changes as described above.3. Scapholunate dissociation. Mammogram 03/26/2021 - Impression:There is no mammographic evidence of malignancy History of arthroplasty of right knee 05/05/2020 Chest X-ray 04/09/2020 - impression: 1. no acute disease in the chest2. suspect emphysema EKG finding 04/09/2020 - normal sinus rhythmnormal ECG Mammogram - screening 03/25/2019 - IMPRESSION: No mammographic evidence of malignancy. 1 year screening is recommended Mammogram - screening 03/23/2018 - IMPRESSION:No mammographic evidence of malignancy. A 1 year screening mammo is recommended Colonoscopy 09/27/2016 - pathology: A: Ascending colon polyps, multiple biopsies: Frgments of sessile serrated polyp. Comment: There is no evidence of malignancy. sessile serrated polyps can be seen in hyperplastic (serrated) polyposis syndrome. B: Rectal polyp, bx: Hyperplastic polyp. - One 2 mm polyp in the rectum, removed with a cold biopsy forcepts. Resected and retrieved.Two 7 mm polyps in the ascending colon, removed with a hot snare. Resected and retrieved.The examined portion of the ileum was normal.Resume regular dietContinue present medicationsAwait pathology results.Repeat Colonoscopy for surveillance based on pathology results. Diagnostic colonoscopy 09/27/2016 Mammogram 09/13/2016 - The focal architectural distortion in the 3:00 left breast has not significantly changed compared to the prior exam and also appears stable on the 2-D mammographic views datin back to 2011. With approximately 5 years of stability this is most likely benign. However, pathology results did not confirm the suspected radical scar and were considered disordant. The patient consulted with Dr. Sneed, general surgery and they opted to follow this lesion as opposed to surgical excisional biopsy at this time. Overall, I still recommend surgical excision but if the patient wishes close follow up that seems severo sonable given the length of mammographic stability and we will continue to follow closely. The patient is due for annual bilateral mammographiy in 6 months and she scheduled that follow-up appointment prior to leaving the department. Mammogram 03/16/2016 - Amended report; An asymmetry with possible architecture distoertion in the left breast is indeterminate. There is no evidence of malignancy within the right breast. - Pathology: From the US guided vaccum-assisted core needle biopsy of a subtle area of architectural distortion in the 3:00 left breast yielded adenosis. Negative for DCIS and invasive carcinoma. Given that the mammographic appearance represented focal architectural distortion this is considered discordant and surgical consultation for surgical excision of the lesion is recommended. The results and recommendations were discussed with the patient at 11:20am on 03/18/16. - s/p US guided core needle biopsy of a focal area of architectural distortion in the 3:00 left breast, with bx marker placed at the site. Ultrasound, breast, unilateral, real time with image documentation, including axilla when performed; limited 03/08/2016 - Ultrasound guided core needle biopsy is recommended for an ill-defined area of architectural distortion in the 3:00 left breast, 4 cm from the nipple correlating with mammographic distortion. Differential considerations include radial scar and carcinoma. Mammogram - screening 03/03/2016 - Impression: An asymmetry with possible architectural distortion in the left breast is indeterminate.There is no evidence of malignancy within the right breast.The patien will be called to schedule an appt. Mammogram - screening 02/26/2015 - Impression: There is no mammographic evidence of malignancy. A 1 year screening mammogram is recommended. The patient will receive written notification of the results. Bone density scan 08/21/2014 Mammogram 02/11/2014 - Normal Allergies and Sensitivities: NKA Current Home Meds: (Last Updated 05/16 15:42) calcium-vitamin D (Super Calcium 600 + D3 400) ferrous sulfate (Feosol 200 mg (65 mg elemental iron) oral tablet) every other day folic acid (folic acid 1 mg oral tablet) 1 mg PO Daily methotrexate (methotrexate 2.5 mg oral tablet) TAKE 4 TABLET BY MOUTH EVERY 7 DAYS omega-3 polyunsaturated fatty acids (Víctor Antartic Krill Oil) predniSONE (predniSONE 5 mg oral tablet) 10 mg TAKE 2 TABLETS BY MOUTH EVERY DAY DIRECTED Initial Wt: 05/16 86.0 kg 189 lb Admission Exam Per Admitting Provider Physical Exam: (relevant to the procedure, including heart and lung evaluation) General: Alert and oriented x3 with proper grooming and hygiene Eyes: Pupils are equal react to light with accommodation. Extraocular movements are intact Throat: Posterior oropharynx clear with absence of edema, erythema or exudate. Dentition is appropriate Cardiac: Regular rate and rhythm with no murmurs or gallops appreciated Lungs: Clear to auscultation throughout with no wheezing, rales or rhonchi Abdomen: Mildly obese, nondistended, nontender with NABS. Extremities: Left hip; flexion is limited to 90 degrees. Internal rotation to 0 degrees, external rotation to 50 degrees. Logroll testing causes referred pain to the groin. Stinchfield test is positive. Scour and impingement test pos itive. Patient has tenderness to palpation in the groin area. She is neurovascularly intact. Neuro: Cranial nerves II through XII are intact with no motor or sensory deficit Skin: Normal in appearance with no open skin areas or discharge Principal Diagnosis Left hip osteoarthritis Discharge Exam Left hip: Outer dressing was removed. Silverlon is clean dry and intact and left in place. Patient is able to detect light sensation to touch circumferentially around the Silverlon. She is able to perform an active straight leg raise test. She is able to actively dorsi and plantarflex her foot. She tolerates light logroll testing. She has no pain with passive hip flexion near 90 degrees but does experience a slight pulling sensation with light passive internal and external hip rotation. Otherwise she is neurovascularly intact. Her peripheral pulses are 2+. Her capillary refill is less than 2 seconds. Her quad strength is 3+ out of 5. Discharge Data Allergies Allergy/AdvReac Type Severity Reaction Status Date / Time No Known Drug Allergies Allergy Verified 06/01/23 09:46 Procedures Performed Operation Date: 06/08/23 07:00 Actual Procedures p Left Total Hip Arthroplasty, Uncemented(Left) - Jordi Rogers MD Hospital Course (1) S/P total left hip arthroplasty: Patient had uneventful overnight stay following left total hip arthroplasty. She is very pleased with the results of the surgery. She is anxious to be discharged home later this morning. She will be doing in-home physical therapy for the first 2 weeks postoperatively. Total hip precautions were reviewed PT/OT Weightbearing as tolerated with walker assistance Keep Silverlon dressing in place Ice with easy wrap DVT prophylaxis with aspirin and DAWOOD stockings Abduction pillow use x 6 weeks Pain control with p.o. medication Plan is to discharge home later this morning with in-home physical therapy for the first 2 weeks Follow-up at [facility] orthopedics as previously scheduled. With questions contact our clinic at [phone] Total Time Total Time Spent Total Time Spent (In Minutes): 20 minutes Discharge Plan Discharge Items Patient Disposition: Home - Home Health Services Reason For Visit: Left Hip Osteoarthritis Discharge Diagnosis: Left hip osteoarthritis Activity: As commented below Lifting: None Bathing: Keep incision dry Bathing Comment: May shower tomorrow Sexual Activity: Wait until after follow-up appointment Exercise/Sports: Wait until after follow-up appointment Driving/Machine Use: No driving until cleared by software computer specialist Weightbearing: Left weightbearing Weightbearing Comment: as tolerated with walker assistance Non-emergency contact: Surgeon Call non-emergency contact if: you have any medication questions, your pain is not controlled, your temperature is above 101.5, your wound has increased drainage and your wound pain has increased Follow-up/Referrals: Raoul Stahl, [Primary Care Provider] - Diet: Regular Addtl Attending Provider Instructions: Post-operative Instructions Dear Patient and Family/Friends, Before you are discharged from the hospital, it is important to know what to expect when you get home after surgery. To that end, we have created this sheet of discharge instructions which covers many commonly asked questions. Make sure you go through this sheet in its entirety with your nurse before you are discharged. Please note that we will go over the specifics of your surgery and recovery when you return for your first post-operative visit. Sincerely, Dr. Rogers Medications 1. Oxycodone 5 mg: take 1-2 tabs every 4-6 hours as needed for post operative pain. This will be sent to your pharmacy. 2. Aspirin 81 mg: take one tab twice daily for 30 days post operatively for blood clot prevention. Please purchase. 3. Extra Strength Tylenol 500 mg: take 2 tabs every 6-8 hours as needed for additional pain relief. Please purchase. Pain Expect to be in a fair amount of pain after surgery. Remember, our goal is not to eliminate your pain, but to make it tolerable. It is a good idea to stay ahead of your pain by taking the medications you were prescribed once you get home. Typically, the pain starts improving 3-7 days after surgery. You should start weaning off the narcotic pain medication (oxycodone, hydrocodone, hydromorphone, morphine) as soon as your pain improves. Please call our office if your pain is not adequately controlled. Ice Ice your operative site at least 5 times a day for 15-30 minutes at a time. Make sure you have a thin cloth between the ice or cooling unit and your skin to prevent ron bite. This is especially important if you received a nerve block. Continue icing your operative site for the first 5-7 days after surgery, then as needed. Diet/Nausea/Vomiting Start by drinking clear liquids and eating crackers. If you can tolerate this, then you may resume your normal diet. If you feel nauseated or vomit, take Zofran/ondansetron (if prescribed). Please call our office if you have intractable nausea or vomiting, or, if after hours, you may go to the Emergency Room for help. Constipation Constipation is a common side effect of narcotic pain medication. If you have not had a bowel movement within 2 days after surgery, we recommend purchasing an over the counter laxative such as Milk of Magnesia, Dulcolax, or Miralax from a local pharmacy, and taking it as instructed. Call our clinic if any questions. Nerve block The anesthesia team sometimes places a nerve block to help with post-operative pain control. This results in significant numbness and inability to move the extremity. The nerve block usually wears off in 8-12 hours, but sometimes can last up to 24 hours. Please call our office if you are still unable to move your extremity after 24 hours, unless you received a pain pump to take home. Nerve blocks typically wear off quickly, so start taking pain medication as soon as you start feeling soreness near your surgical site. Weight bearing and Range of Motion. Do not bear any weight through your operative extremity immediately after surgery. If you had upper extremity surgery, do not lift anything with that arm. If you are in a knee brace, keep it locked in place until your follow-up. We will discuss your weight bearing, range of motion, and lifting restrictions in detail at your first post-operative appointment. Continuous Passive Motion (CPM) Machine If you were prescribed a CPM machine, it will start after your first post- operative appointment, at which time we will give you instructions on the range of motion settings and duration of treatment Physical therapy You will be given a prescription for physical therapy or occupational therapy at your first post-operative appointment. Typically, patients start therapy within 1 week of surgery Wound care and showering We will inspect your wound at your first post-operative visit, and may do a tobias ssing change at that time. Most patients will be in a water-proof dressing that is removed 14 days after surgery. It is normal to see some dried blood on the dressing. Do not remove your dressing, paper strips or sutures yourself unless you are given permission. Showering is allowed the day after surgery. Do not scrub or remove any dressings. The wound should not be submerged underwater (i.e. in a bathtub or pool) until 4 weeks after surgery DAWOOD stockings If you were given white stockings, these are to be worn at all times except to shower (on both legs) for the first 2 weeks after surgery. Driving You may not drive while taking narcotic pain medication or while in a cast, splint, sling or brace. You, the patient, need to make the final determination about when you are safe to drive, however, the earliest you may consider driving after surgery is below: Hand/Wrist/Elbow Surgery: 3 days Shoulder Surgery: 2 weeks Hip,/Knee/Ankle Surgery: 4 weeks Fracture repair: 6 weeks Return to Work Your return to work depends on what surgery was done and what type of work you do. Please bring any paperwork your employer needs completed to your first post-operative visit. Also, bring a description of your job duties, as this helps us to understand what risks you may face at work. Travel Avoid long distance travel (greater than 1 hour) in airplanes and cars for the first 6 weeks after surgery. If you must travel, you need to have a Doppler ultrasound done before you travel to rule out a blood clot in your legs. Follow-up You should have a follow-up appointment already scheduled 1-2 days after surgery. If not, please contact our office to make this appointment before you leave the hospital. When to call the office It is normal to have swelling and bruising in the limb that was operated on. This will improve with time. It is also normal to have fevers for the first 2 days after surgery. Reasons you should call your doctor include: Uncontrolled pain; Nausea, vomiting, or constipation that does not improve with medication; Fevers over 101.5, chills, sweats; Drainage or bleeding from the wound; Foul odor; Spreading areas of redness; Any other concerns Pending Studies at Discharge: No Stand-Alone Forms: [facility] Medications and DC Order Prescriptions: New aspirin 81 mg Tablet,Delayed Release (Dr/Ec) 81 mg PO BID 30 Days Qty: 60 0RF acetaminophen [Tylenol Extra Strength] 500 mg Tablet 1,000 mg PO Q8 30 Days Qty: 180 0RF oxycodone 5 mg Tablet 5 - 10 mg PO Q4H MDD Ongoing treatment PRN (Reason: Postoperative pain control) Qty: 28 0RF Continued methotrexate sodium 2.5 mg tablet 15 mg PO Q7D Qty: 24 2RF Patient Comments: takes monday evenings krill oil [id number] mg capsule 1 cap PO BID ferrous sulfate [Feosol] 325 mg (65 mg iron) tablet 325 mg PO QAM prednisone 5 mg tablet 5 mg PO .COMPLEX Qty: 90 1RF Rx Instructions: 3 tablets p.o. daily as directed calcium 600 mg Capsule 600 mg PO BID folic acid 1 mg tablet 1 mg PO QAM Admission Data Admit Date/Time: 06/08/23 08:41 Attending Provider: Jordi Rogers Admit Provider: Jordi Rogers Primary Care Provider: Raoul Stahl Other Interventions: Discharge Summary Assessment (RN) Last Done: 06/09/23 08:57
[2023-06-09] MEDS ORDERED: CeleBREX 200 MG CAP PO SCH (12:00)
[2023-06-12] MEDS ORDERED: metHOTREXate sodium 2.5 MG TAB PO SCH (21:00)
== END 2023-06-09 10:55 | disposition home health service (06) ==
LOC: ASU 05:11 → PACUINP 05:11 → 3W 12:08